=== PATIENT | male | born 1965 | race Caucasian/White ===

== ENCOUNTER 2017-11-17 19:04 | Emergency (ER) | payer MEDICARE, OTHER ==
[~2017-11-17 19:04] MED LIST: ACET325T11 PO; AMAN50SY PO; ASPI325T PO; FENO50TA PO; FERR325T PO; IBUP600T26 PO; KEPP1000 PO; LORA-392 PO; LORA0.5T PO; PHEN100 PO; QUET1TAB66 PO; SENO8.6T6 PO; SERT50 PO; TAB-TAB PO
[2017-11-17 19:19] VITALS: BP 150/80; PULSE 66; RESP 18; TEMP 98.2; O2SAT 97
[2017-11-17 19:30] VITALS: BP 150/80; PULSE 65; RESP 18; TEMP 98.4; O2SAT 97
[2017-11-17] MEDS ORDERED: SODIUM CHLOR 0.9% 1000 ML INJ 1,000 ML IV ONE (19:33)
--- NOTE | 2017-11-17 19:36 | PD ---
HPI Chief Complaint: seizures Time Seen by Provider: 19:20 Travel History International Travel<30 days: No Contact w/Intl Traveler<30days: No Traveled to known affect area: No History of Present Illness HPI 52-year-old male with history of seizure disorder, remote CVA with left-sided deficit, presents emergency department for evaluation of 3 seizures in the last 24 hours. Patient resides at a rehab facility. He has been off of his Dilantin recently but started again yesterday. He has had 2 doses of it. Patient did not strike his head. There is no loss of bowel or bladder. He did not bite his tongue. He reports no pain. He is overall a poor historian. Most of history is obtained from senior oracle dba. [facility] Past Medical History Depression: Yes Cardiovascular Problems: Yes (HX OF ABNORMAL EKG) High Cholesterol: Yes Cerebrovascular Accident: Yes Genitourinary: Yes (Constipation) Hypertension: Yes Neurologic: Yes (Ataxia) Psychiatric: Yes (DEPRESSION,ORGANIC AFFECTIVE DISORDER) Immunizations Current: Yes Seizures: Yes Past Surgical History Body Medical Devices: NEUROSYPHILIS, ENCEPHALOPATHY, NONPSYCHOTIC BRAIN D/O Social History Alcohol Use: No Tobacco Use: No Substance Use: No Allergies-Medications (Allergen,Severity, Reaction): Coded Allergies: ipratropium (Unverified Allergy, Severe, 11/17/17) penicillin G (Unverified Allergy, Severe, 11/17/17) Reported Meds & Prescriptions Reported Meds & Active Scripts Active Reported Tylenol 325 Mg Tab (Acetaminophen) 325 Mg Tab 650 Mg PO Q4H PRN Seroquel (Quetiapine Fumarate) 300 Mg Tab 300 Mg PO HS Iron (Ferrous Sulfate) 325 Mg Tab 325 Mg PO TID Dilantin 100 Mg Kapseals (Phenytoin Sodium) 100 Mg Caper 100 Mg PO TID Ibuprofen 600 Mg Tab 600 Mg PO Q8H PRN Lorazepam 0.5 Mg Tab 0.5 Mg PO Q8 PRN Keppra (Levetiracetam) 1,000 Mg Tab 1,000 Mg PO TID Tricor (Fenofibrate) 145 Mg Tab 160 Mg PO DAILY Multivitamin (Multivitamins) 1 Tab Tab 1 Tab PO DAILY Senokot (Sennosides) 8.6 Mg Tab 0 PO DAILYPRN UNKNOWN DOSE Symmetrel (Amantadine HCl) 50 Mg/5 Ml Syrp 100 Mg PO BID Ativan (Lorazepam) 0.5 Mg Tab 1 Mg PO Q8 PRN Zoloft (Sertraline HCl) 50 Mg Tab 50 Mg PO DAILY Aspirin 325 Mg Tab 325 Mg PO DAILY Review of Systems Except as stated in HPI: all other systems reviewed are Neg Physical Exam Narrative GENERAL: Thin, chronically ill-appearing male patient, in no acute distress. SKIN: Focused skin assessment warm/dry. HEAD: Atraumatic. Normocephalic. EYES: Pupils equal and round. No scleral icterus. No injection or drainage. ENT: No nasal bleeding or discharge. Mucous membranes pink and moist. NECK: Trachea midline. No JVD. CARDIOVASCULAR: Regular rate and rhythm. RESPIRATORY: No accessory muscle use. Clear to auscultation. Breath sounds equal bilaterally. GASTROINTESTINAL: Abdomen soft, non-tender, nondistended. Hepatic and splenic margins not palpable. MUSCULOSKELETAL: No obvious deformities. No clubbing. No cyanosis. No edema. NEUROLOGICAL: Awake and alert. No obvious cranial nerve deficits. Patient does move all extremities however left upper and lower extremities are weaker.. Normal speech. Data Data Last Documented VS Vital Signs Date Time Temp Pulse Resp B/P (MAP) Pulse Ox O2 Delivery O2 Flow Rate FiO2 11/17/17 22:54 70 16 138/82 (100) 11/17/17 19:44 97 Room Air 11/17/17 19:30 98.4 Orders Orders Complete Blood Count With Diff (11/17/17 19:33) Alcohol (Ethanol) (11/17/17 19:33) Phenytoin (Dilantin) (11/17/17 19:33) Drug Screen, Random Urine (11/17/17 19:33) Blood Glucose (11/17/17 19:33) Ecg Monitoring (11/17/17 19:33) Iv Access Insert/Monitor (11/17/17 19:33) Oximetry (11/17/17 19:33) Comprehensive Metabolic Panel (11/17/17 19:33) Sodium Chlor 0.9% 1000 Ml Inj (Ns 1000 M (11/17/17 19:33) Sodium Chloride 0.9% Flush (Ns Flush) (11/17/17 19:45) Magnesium (Mg) (11/17/17 19:33) Phenytoin Inj (Dilantin Inj) (11/17/17 21:30) Ed Discharge Order (11/17/17 23:32) Labs Laboratory Tests Test 11/17/17 20:00 White Blood Count 18.6 TH/MM3 Red Blood Count 4.61 MIL/MM3 Hemoglobin 14.8 GM/DL Hematocrit 43.6 % Mean Corpuscular Volume 94.6 FL Mean Corpuscular Hemoglobin 32.2 PG Mean Corpuscular Hemoglobin Concent 34.0 % Red Cell Distribution Width 14.2 % Platelet Count 408 TH/MM3 Mean Platelet Volume 8.0 FL Neutrophils (%) (Auto) 89.8 % Lymphocytes (%) (Auto) 4.1 % Monocytes (%) (Auto) 5.8 % Eosinophils (%) (Auto) 0.0 % Basophils (%) (Auto) 0.3 % Neutrophils # (Auto) 16.7 TH/MM3 Lymphocytes # (Auto) 0.8 TH/MM3 Monocytes # (Auto) 1.1 TH/MM3 Eosinophils # (Auto) 0.0 TH/MM3 Basophils # (Auto) 0.0 TH/MM3 CBC Comment DIFF FINAL Differential Comment Blood Urea Nitrogen 15 MG/DL Creatinine 0.97 MG/DL Random Glucose 123 MG/DL Total Protein 8.4 GM/DL Albumin 4.4 GM/DL Calcium Level 9.7 MG/DL Magnesium Level 2.2 MG/DL Alkaline Phosphatase 59 U/L Aspartate Amino Transf (AST/SGOT) 43 U/L Alanine Aminotransferase (ALT/SGPT) 33 U/L Total Bilirubin 0.9 MG/DL Sodium Level 139 MEQ/L Potassium Level 4.0 MEQ/L Chloride Level 103 MEQ/L Carbon Dioxide Level 26.1 MEQ/L Anion Gap 10 MEQ/L Estimat Glomerular Filtration Rate 81 ML/MIN Phenytoin (Dilantin) Level 8.9 MCG/ML Ethyl Alcohol Level LESS THAN 3 MG/DL [facility] Medical Decision Making Medical Screen Exam Complete: Yes Emergency Medical Condition: Yes Medical Record Reviewed: Yes Differential Diagnosis Breakthrough seizure versus seizure disorder versus medication noncompliance versus subtherapeutic medication level versus electrolyte abnormality Narrative Course 52-year-old male presents emergency department for evaluation following 3 seizures in the last 24 hours. Patient does have history of seizure disorder. He recently restarted his Dilantin. Lab work shows a subtherapeutic Dilantin level. Patient is given 1 g IV Dilantin bolus. Patient has leukocytosis of 18.6, likely secondary to multiple seizures in the last 24 hours. He is instructed to continue his Dilantin as prescribed by mouth. I discussed the patient my attending physician. Patient will be discharged at this time. Transportation has been contacted by case management. Patient will be staying until morning for a ride. Laboratory Tests Test 11/17/17 20:00 White Blood Count 18.6 TH/MM3 Red Blood Count 4.61 MIL/MM3 Hemoglobin 14.8 GM/DL Hematocrit 43.6 % Mean Corpuscular Volume 94.6 FL Mean Corpuscular Hemoglobin 32.2 PG Mean Corpuscular Hemoglobin Concent 34.0 % Red Cell Distribution Width 14.2 % Platelet Count 408 TH/MM3 Mean Platelet Volume 8.0 FL Neutrophils (%) (Auto) 89.8 % Lymphocytes (%) (Auto) 4.1 % Monocytes (%) (Auto) 5.8 % Eosinophils (%) (Auto) 0.0 % Basophils (%) (Auto) 0.3 % Neutrophils # (Auto) 16.7 TH/MM3 Lymphocytes # (Auto) 0.8 TH/MM3 Monocytes # (Auto) 1.1 TH/MM3 Eosinophils # (Auto) 0.0 TH/MM3 Basophils # (Auto) 0.0 TH/MM3 CBC Comment DIFF FINAL Differential Comment Blood Urea Nitrogen 15 MG/DL Creatinine 0.97 MG/DL Random Glucose 123 MG/DL Total Protein 8.4 GM/DL Albumin 4.4 GM/DL Calcium Level 9.7 MG/DL Magnesium Level 2.2 MG/DL Alkaline Phosphatase 59 U/L Aspartate Amino Transf (AST/SGOT) 43 U/L Alanine Aminotransferase (ALT/SGPT) 33 U/L Total Bilirubin 0.9 MG/DL Sodium Level 139 MEQ/L Potassium Level 4.0 MEQ/L Chloride Level 103 MEQ/L Carbon Dioxide Level 26.1 MEQ/L Anion Gap 10 MEQ/L Estimat Glomerular Filtration Rate 81 ML/MIN Phenytoin (Dilantin) Level 8.9 MCG/ML Ethyl Alcohol Level LESS THAN 3 MG/DL Diagnosis Primary Impression: Breakthrough seizure Additional Impression: Subtherapeutic serum dilantin level Referrals: Primary Care Physician Patient Instructions: General Instructions, Recurrent Seizures in Adults (ED) Additional Instructions: Continue medication as already prescribed Follow-up with your neurologist Return immediately with acute worsening symptoms Med/Other Pt SpecificInfo: No Change to Meds Disposition: 03 DISCHARGE TO SNF Condition: Stable Antonia Smith Nov 17, 2017 19:36
[2017-11-17 19:44] VITALS: RESP 18; O2SAT 97
[2017-11-17] MEDS ORDERED: SODIUM CHLORIDE 0.9% FLUSH 10 ML FLUSH IVF PRN (19:45)
[2017-11-17 20:40] LABS: AUTOMATED NEUTROPHIL # 16.7 TH/MM3 (1.8-7.7); BASOPHIL % 0.3 % (0.0-2.0); HEMATOCRIT 43.6 % (39.0-51.0); HEMOGLOBIN 14.8 GM/DL (13.0-17.0); LYMPH % 4.1 % (9.0-44.0); LYMPHOCYTE # 0.8 TH/MM3 (1.0-4.8); MEAN CELL VOLUME 94.6 FL (80.0-100.0); MEAN CORPUSCULAR HEMOGLOBIN 32.2 PG (27.0-34.0); MONO % 5.8 % (0.0-8.0); MONOCYTE # 1.1 TH/MM3 (0-0.9); NEUT % 89.8 % (16.0-70.0); PLATELET COUNT 408 TH/MM3 (150-450); RED BLOOD COUNT 4.61 MIL/MM3 (4.50-5.90); RED CELL DISTRIBUTION WIDTH 14.2 % (11.6-17.2); WHITE BLOOD COUNT 18.6 TH/MM3 (4.0-11.0)
[2017-11-17 21:13] LABS: ALBUMIN 4.4 GM/DL (3.4-5.0); ALKALINE PHOSPHATASE 59 U/L (45-117); ALT (GPT) 33 U/L (12-78); AST (GOT) 43 U/L (15-37); BICARBONATE 26.1 MEQ/L (21.0-32.0); BLOOD UREA NITROGEN 15 MG/DL (7-18); CALCIUM 9.7 MG/DL (8.5-10.1); CHLORIDE 103 MEQ/L (98-107); CREATININE 0.97 MG/DL (0.60-1.30); GLOMERULAR FILTRATION RATE 81 ML/MIN (>89); GLUCOSE,RANDOM 123 MG/DL (74-106); MAGNESIUM 2.2 MG/DL (1.5-2.5); PHENYTOIN (DILANTIN) 8.9 MCG/ML (10.0-20.0); SODIUM (NA) 139 MEQ/L (136-145); TOTAL BILIRUBIN ADULT 0.9 MG/DL (0.2-1.0); TOTAL PROTEIN 8.4 GM/DL (6.4-8.2)
[2017-11-17] MEDS ORDERED: PHENYTOIN INJ 1,000 MG in SODIUM CHLORIDE 0.9% INJ 100 ML IV ONE (21:30)
[2017-11-17 22:54] VITALS: BP 138/82; PULSE 70; RESP 16
[2017-11-18] MEDS ORDERED: ASPI1TAB57 PO (06:27)
[2017-11-18] MEDS ORDERED: DILA100C PO (06:27)
[2017-11-18] MEDS ORDERED: LEVE10003 PO (06:27)
[2017-11-18] MEDS ORDERED: QUET-87 (06:27)
[2017-11-18] MEDS ORDERED: FENO160T PO (06:27)
[2017-11-18] MEDS ORDERED: LORA-392 PO (06:27)
== END 2017-11-18 08:19 ==
LOC: NEPD 19:04
DX: G40.909 Epilepsy, unspecified, not intractable, without status epilepticus (principal); R89.2 Abnormal level of other drugs, medicaments and biological substances in specimens from other organs, systems and tissues; I69.30 Unspecified sequelae of cerebral infarction; E78.00 Pure hypercholesterolemia, unspecified; F32.9 Major depressive disorder, single episode, unspecified; I10 Essential (primary) hypertension
CPT/HCPCS: 80053; 80185; 80307; 83735; 85025; 96361; 96374; 99284; J1165; J7030

== ENCOUNTER 2018-06-14 09:14 | Observation (INO) ==
[2018-06-14 09:46] LABS: Baso % (Auto) 0.2 % (0.0-2.0); Hematocrit 41.7 % (39.0-51.0); Hemoglobin 13.9 gm/dL (13.0-17.0); Lymph # (Auto) 0.6 th/mm3 (1.0-4.8); Lymph % (Auto) 3.6 % (9.0-44.0); Mean Corpuscular HGB Conc 33.3 % (32.0-36.0); Mean Corpuscular Hemoglobin 31.7 pg (27.0-34.0); Mean Corpuscular Volume 95.3 fL (80.0-100.0); Mono # (Auto) 0.9 th/mm3 (0.0-0.9); Mono % (Auto) 5.6 % (0.0-8.0); Neut # (Auto) 14.9 th/mm3 (1.8-7.7); Neut % (Auto) 90.6 % (16.0-70.0); Platelet Count 569 th/mm3 (150-450); Red Blood Count 4.38 mil/mm3 (4.50-5.90); Red Cell Distribution Width 14.1 % (11.6-17.2); White Blood Count 16.5 th/mm3 (4.0-11.0)
[2018-06-14 10:01] LABS: Anion Gap 18 meq/L (5-15); Aspartate Aminotransferase 26 U/L (15-37); Blood Urea Nitrogen 17 mg/dL (7-18); Calcium 9.7 mg/dL (8.5-10.1); Carbon Dioxide 18.5 meq/L (21.0-32.0); Chloride 103 meq/L (98-107); Glomerular Filtration Rate 49 mL/min (>89); Glucose,Random 163 mg/dL (74-106); Potassium 3.3 meq/L (3.5-5.1); Sodium 139 meq/L (136-145)
[2018-06-14 10:02] LABS: Alanine Aminotransferase 24 U/L (12-78)
[2018-06-14 10:04] LABS: Alkaline Phosphatase 99 U/L (45-117); Total Protein 8.9 g/dL (6.4-8.2)
[2018-06-14 11:10] LABS: Bacteria,Urine Many /hpf; Bilirubin,Urine Negative (Negative); Clarity,Urine Turbid (Clear); Glucose,Urine (UA) Negative (Negative); Hyaline Casts,Urine 15 /lpf (0-3); Leukocyte Esterase,Urine Large (Negative); Mucus,Urine Few /lpf (Occasional); Nitrite,Urine Negative (Negative); Specific Gravity,Urine 1.015 (1.002-1.035)
[2018-06-14 11:13] LABS: Color,Urine Yellow (Yellw/Straw)
--- NOTE | 2018-06-14 11:18 | ED ---
HPI General Chief Complaint: Altered Mental Status Stated Complaint: NVD / poss AMS Time Seen by Provider: 06/14/18 11:06 Source: patient, EMS and RN notes reviewed Mode of arrival: EMS Limitations: no limitations History of Present Illness HPI narrative: 53-year-old male with PMH of HTN,CVA presents to the ED via EMS from [facility] for evaluation of altered mental status. On presentation the patient is alert to self and situation only. He states that he had a seizure this morning. He asks repeatedly to put on his pants. He has a stutter and tremor, unknown if this is baseline. He is pleasant and follows commands but is unable to offer any other meaningful history. Related Data Home Medications Medication Instructions Recorded Confirmed amantadine HCl 100 mg PO BID 06/14/18 06/14/18 aspirin 81 mg PO DAILY 06/14/18 06/14/18 fenofibrate 160 mg PO DAILY 06/14/18 06/14/18 ferrous sulfate 325 mg PO TID 06/14/18 06/14/18 levetiracetam [Keppra] 1,000 mg PO TID 06/14/18 06/14/18 lorazepam 0.5 mg PO Q8H PRN 06/14/18 06/14/18 lorazepam [Ativan] 1 mg PO BID PRN 06/14/18 06/14/18 phenytoin sodium extended 100 mg PO TID 06/14/18 06/14/18 [Dilantin Extended] quetiapine 100 mg PO HS 06/14/18 06/14/18 Allergies Allergy/AdvReac Type Severity Reaction Status Date / Time ipratropium Allergy Severe unknown Verified 06/14/18 11:39 penicillin G Allergy Severe unknown Verified 06/14/18 11:39 Review of Systems ROS: all other systems reviewed are negative [facility] Medical History Medical History Anemia (Acute) Ataxia (Acute) CVA (cerebral vascular accident) (Acute) Constipation (Acute) Depression (Acute) HTN (hypertension) (Acute) Hyperlipemia (Acute) Seizure (Acute) Surgical history unknown (Acute) Social History Social History Substance History: Unable to Obtain Smoking Status: Unknown if ever smoked How Often Do You Have a Drink Containing Alcohol: Unable to Obtain Recent Travel in [facility] within the Last 8 Weeks: No Recent Out of Country Travel within the Last 8 Weeks: No Immunization History Tetanus Immunization: Unable to Assess Exam Narrative Exam Narrative: GENERAL: Well-developed, well-nourished white male, smells strongly of urine, no acute distress. SKIN: Focused skin assessment warm/dry. HEAD: Atraumatic. Normocephalic. EYES: Pupils equal and round. No scleral icterus. No injection or drainage. ENT: No nasal bleeding or discharge. Mucous membranes pink and moist. NECK: Trachea midline. No JVD. CARDIOVASCULAR: Regular rate and rhythm. No murmur appreciated. RESPIRATORY: No accessory muscle use. Clear to auscultation. Breath sounds equal bilaterally. GASTROINTESTINAL: Abdomen soft, non-tender, nondistended. Hepatic and splenic margins not palpable. MUSCULOSKELETAL: No obvious deformities. No clubbing. No cyanosis. No edema. NEUROLOGICAL: Awake and alert. No obvious cranial nerve deficits. Mild tremor and pronounced stutter. Equal manager trade strength in bilateral hands. Moves the lower extremities spontaneously. PSYCHIATRIC: Confused, cooperative Course Initial Documented Vital Signs Temperature 97.8 F 06/14/18 09:20 Pulse Rate 79 06/14/18 09:20 Respiratory Rate 19 06/14/18 09:20 Blood Pressure 142/84 H 06/14/18 09:20 Pulse Oximetry 95 06/14/18 09:20 Last Documented Vital Signs Temperature 97.8 F 06/14/18 09:20 Pulse Rate 67 06/14/18 13:46 Respiratory Rate 24 06/14/18 13:46 Blood Pressure 152/90 H 06/14/18 13:46 Pulse Oximetry 97 06/14/18 13:46 Medical Decision Making [facility] Narrative Medical decision making narrative: 53-year-old male with PMH of HTN, CVA presents the ED from his rehab for evaluation of altered mental status this morning. On exam the patient's alert and oriented to situation. He thinks that he had a seizure this morning because he has been incontinent of urine. He follows commands but he is unable to hop for any real history. There is a pronounced daughter. I reviewed the paperwork accompanying the patient and do not see any evidence of this. CT of the brain without acute findings. Lab work reveals leukocytosis of 16K+ and evidence of UTI. Creatinine up from baseline. Dilantin is at subtherapeutic levels. Patient was administered a liter of normal saline, 750 of Levaquin and 600 mg of Dilantin. I discussed the patient with the hospitalist who agrees to accept him for observation. Patient's agreeable to this plan. Please see medicine notes for disposition. Medical Screen Exam Complete: Yes Emergency Medical Condition: Yes Differential Diagnosis Differential Diagnosis: UTI versus seizure versus ICH versus other Lab Data Result diagrams: 06/14/18 09:34 06/14/18 09:34 Lab Results 06/14/18 06/14/18 06/14/18 Range/Units 09:34 09:34 09:34 WBC 16.5 H (4.0-11.0) th/mm3 RBC 4.38 L (4.50-5.90) mil/mm3 Hgb 13.9 (13.0-17.0) gm/dL Hct 41.7 (39.0-51.0) % MCV 95.3 (80.0-100.0) fL MCH 31.7 (27.0-34.0) pg MCHC 33.3 (32.0-36.0) % RDW 14.1 (11.6-17.2) % Plt Count 569 H (150-450) th/mm3 MPV 7.0 (7.0-11.0) fL Neut % (Auto) 90.6 H (16.0-70.0) % Lymph % (Auto) 3.6 L (9.0-44.0) % [place] % (Auto) 5.6 (0.0-8.0) % Eos % (Auto) 0.0 (0.0-4.0) % Baso % (Auto) 0.2 (0.0-2.0) % Neut # (Auto) 14.9 H (1.8-7.7) th/mm3 Lymph # (Auto) 0.6 L (1.0-4.8) th/mm3 [place] # (Auto) 0.9 (0.0-0.9) th/mm3 Eos # (Auto) 0.0 (0.0-0.4) th/mm3 Baso # (Auto) 0.0 (0.0-0.2) th/mm3 WBC Differential . Differential Comment Auto diff final Sodium 139 (136-145) meq/L Potassium 3.3 L (3.5-5.1) meq/L Chloride 103 (98-107) meq/L Carbon Dioxide 18.5 L (21.0-32.0) meq/L Anion Gap 18 H (5-15) meq/L BUN 17 (7-18) mg/dL Creatinine 1.49 H (0.60-1.30) mg/dL Estimated GFR 49 L (>89) mL/min Random Glucose 163 H (74-106) mg/dL Calcium 9.7 (8.5-10.1) mg/dL Total Bilirubin 0.5 (0.2-1.0) mg/dL AST 26 (15-37) U/L ALT 24 (12-78) U/L Alkaline Phosphatase 99 (45-117) U/L Total Creatine Kinase 126 (39-308) U/L CK-MB (CK-2) 3.3 (0.5-3.6) ng/mL Total Protein 8.9 H (6.4-8.2) g/dL Albumin 4.0 (3.4-5.0) g/dL Lipase (73-393) U/L Urine Color (Yellw/Straw) Urine Clarity (Clear) Urine pH (5.0-8.5) Ur Specific [place] (1.002-1.035) Urine Protein (Neg-Trace) mg/dL Urine Glucose (UA) (Negative) mg/dL Urine Ketones (Negative) mg/dL Urine Occult Blood (Negative) Urine Nitrate (Negative) Urine Bilirubin (Negative) Urine Urobilinogen (Less than 2) mg/dL Ur Leukocyte Esterase (Negative) Urine RBC (0-3) /hpf Urine WBC (0-5) /hpf Urine WBC Clumps (None) Urine Bacteria (None) /hpf Hyaline Casts (0-3) /lpf Urine Mucus (Occasional) /lpf Micro UA Comment Ur Microscopic Review Urine Culture Comments Phenytoin (10.0-20.0) mcg/mL 06/14/18 06/14/18 06/14/18 Range/Units 09:34 09:34 10:28 WBC (4.0-11.0) th/mm3 RBC (4.50-5.90) mil/mm3 Hgb (13.0-17.0) gm/dL Hct (39.0-51.0) % MCV (80.0-100.0) fL MCH (27.0-34.0) pg MCHC (32.0-36.0) % RDW (11.6-17.2) % Plt Count (150-450) th/mm3 MPV (7.0-11.0) fL Neut % (Auto) (16.0-70.0) % Lymph % (Auto) (9.0-44.0) % [place] % (Auto) (0.0-8.0) % Eos % (Auto) (0.0-4.0) % Baso % (Auto) (0.0-2.0) % Neut # (Auto) (1.8-7.7) th/mm3 Lymph # (Auto) (1.0-4.8) th/mm3 [place] # (Auto) (0.0-0.9) th/mm3 Eos # (Auto) (0.0-0.4) th/mm3 Baso # (Auto) (0.0-0.2) th/mm3 WBC Differential Differential Comment Sodium (136-145) meq/L Potassium (3.5-5.1) meq/L Chloride (98-107) meq/L Carbon Dioxide (21.0-32.0) meq/L Anion Gap (5-15) meq/L BUN (7-18) mg/dL Creatinine (0.60-1.30) mg/dL Estimated GFR (>89) mL/min Random Glucose (74-106) mg/dL Calcium (8.5-10.1) mg/dL Total Bilirubin (0.2-1.0) mg/dL AST (15-37) U/L ALT (12-78) U/L Alkaline Phosphatase (45-117) U/L Total Creatine Kinase (39-308) U/L CK-MB (CK-2) (0.5-3.6) ng/mL Total Protein (6.4-8.2) g/dL Albumin (3.4-5.0) g/dL Lipase 235 (73-393) U/L Urine Color Yellow (Yellw/Straw) Urine Clarity Turbid H (Clear) Urine pH 6.0 (5.0-8.5) Ur Specific [place] 1.015 (1.002-1.035) Urine Protein 100 H (Neg-Trace) mg/dL Urine Glucose (UA) Negative (Negative) mg/dL Urine Ketones Negative (Negative) mg/dL Urine Occult Blood Small H (Negative) Urine Nitrate Negative (Negative) Urine Bilirubin Negative (Negative) Urine Urobilinogen Less than 2 (Less than 2) mg/dL Ur Leukocyte Esterase Large H (Negative) Urine RBC 8 H (0-3) /hpf Urine WBC (0-5) /hpf Urine WBC Clumps Many H (None) Urine Bacteria Many H (None) /hpf Hyaline Casts 15 (0-3) /lpf Urine Mucus Few H (Occasional) /lpf Micro UA Comment Cath-culture ind Ur Microscopic Review Not Reportable Urine Culture Comments Cath-cult indicated Phenytoin 4.4 L (10.0-20.0) mcg/mL Imaging Data Radiologist's impression: Head CT 06/14/18 11:15 CONCLUSION: 1. No acute intracranial abnormality. . Discharge Plan Discharge Disposition Patient Disposition: 30 Still Patient Physicians Team ED Provider: Lobo Mckeon ED Midlevel Provider: Valery Cortes Primary Care Provider: UNKNOWN, Attending Provider: Ernie Bates Other Providers: Ervin Bueno Discharge Interventions Interventions: ED Discharge Assessment Last Done: 06/14/18 14:00 Vital Signs Last Done: 06/14/18 11:39 Status ED Status: Left Department Discharge Information Discharge Date/Time: 06/14/18 14:01
[2018-06-14] MEDS ORDERED: Sod Chloride 0.9% Inj 1,000 ML IV.SIG ONE (11:28)
--- NOTE | 2018-06-14 11:44 | CT ---
EXAM DATE: 06/14/2018 11:35 AM EST AGE/SEX: 53 years / Male INDICATIONS: Altered mental status. Possible seizure last night. CLINICAL DATA: This is the patient's initial encounter. Patient reports that signs and symptoms have been present for 1 day and indicates a pain score of 0/10. MEDICAL/SURGICAL HISTORY: Seizures. None. RADIATION DOSE: 35.01 CTDI (mGy) COMPARISON: [facility] [place] BRAIN [place]/O CONTRAST, 02/10/2012. . TECHNIQUE: CT of the head without contrast. Using automated exposure control and adjustment of the mA and/or kV according to patient size, radiation dose was kept as low as reasonably achievable to ob tain optimal diagnostic quality images. DICOM format image data is available electronically for revi ew and comparison. FINDINGS: Cerebrum: The ventricles are normal for age. No evidence of midline shift, mass lesion, hemorrhage or acute infarction. No extraaxial fluid collections are seen. Posterior Fossa: The cerebellum and brainstem are intact. The 4th ventricle is midline. The cerebe llopontine angle is unremarkable. Extracranial: The visualized portion of the orbits is intact. Skull: The calvaria is intact. No evidence of skull fracture. CONCLUSION: 1. No acute intracranial abnormality. . Electronically signed by: Max Ruiz MD 06/14/2018 11:42 AM EST
[2018-06-14 11:45] LABS: Creatine Kinase 126 U/L (39-308)
[2018-06-14 12:00] LABS: Creatine Kinase MB 3.3 ng/mL (0.5-3.6)
[2018-06-14] MEDS ORDERED: LORazepam 0.5 MG Tablet PO PRN (13:17)
[2018-06-14] MEDS ORDERED: Bisacodyl 10 MG Supp RECTAL PRN (13:27)
--- NOTE | 2018-06-14 13:32 | P.HPIM ---
History of Present Illness Service: [facility] Primary Care Physician: UNKNOWN Chief Complaint: AMS History of Present Illness: 53-year-old male who resides [facility] sent into the hospital for evaluation of a status. Per halfway documentation, the patient had an episode of vomiting today and was confused. He reported to the ER staff he had a seizure. There is reports of urinary incontinence. On my evaluation, the patient is very confused, repeatedly says yes to every questions and he does not able to contribute to the history. EMR reviewed. There is reported history of neurosyphilis versus CVA. He has been on Dilantin and Keppra for seizure disorder. It is unclear if there has been any recent change in his medications. Dilantin level was found to be low. Urinalysis in the emergency room concerning for UTI. 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 - Medical History Medical History: Medical History (Last Reviewed 06/14/18 @ 14:06 by Ernie Bates MD) Anemia Ataxia CVA (cerebral vascular accident) Constipation Depression HTN (hypertension) Hyperlipemia Seizure Surgical history unknown - Tobacco History Smoking Status: Unknown if ever smoked - Alcohol History How Often Do You Have a Drink Containing Alcohol: Unable to Obtain - Substance Use History Substance History: Unable to Obtain - Travel History Recent Travel in the [place] Within the Last 8 Weeks: No Recent Travel Out of the Country Within the Last 8 Weeks: No - Immunization History Tetanus Immunization: Unable to Assess Medications and Allergies Active Medications: Active Medications Al Hydroxide/Mg Hydroxide (Milk Of Magnesia Liq) 30 ml PO Q12H PRN PRN Reason: Mild Constipation Amantadine HCl (Symmetrel) 100 mg PO BID RASHEED Aspirin (Aspirin Chew) 81 mg PO DAILY RASHEED Bisacodyl (Dulcolax Supp) 10 mg RECTAL DAILY PRN PRN Reason: SEVERE CONSITIPATION Ferrous Sulfate (Ferosul) 325 mg PO TID RASHEED Phenytoin Sodium / Sodium (Chloride) 50 mls @ 600 mls/hr IV.SIG ONCE ONE Stop: 06/14/18 12:42 Lactulose (Lactulose Liq) 30 ml PO DAILY PRN PRN Reason: SEVERE CONSITIPATION Levofloxacin (Levaquin) 750 mg PO DAILY RASHEED Lorazepam (Ativan) 0.5 mg PO Q8H PRN PRN Reason: Anxiety Non-Formulary Medication (Fenofibrate [Fenofibrate]) 160 mg PO DAILY RASHEED Non-Formulary Medication (Levetiracetam [Keppra]) 1,000 mg PO TID RASHEED Phenytoin Sodium (Dilantin) 100 mg PO TID RASHEED Quetiapine Fumarate (Seroquel) 100 mg PO HS [facility] Sennosides (Senokot) 17.2 mg PO Q12H PRN PRN Reason: Moderate Constipation Allergies Allergy/AdvReac Type Severity Reaction Status Date / Time ipratropium Allergy Severe unknown Verified 06/14/18 11:39 penicillin G Allergy Severe unknown Verified 06/14/18 11:39 Home Medications Medication Instructions Recorded Confirmed Type amantadine HCl 100 mg PO BID 06/14/18 06/14/18 History aspirin 81 mg PO DAILY 06/14/18 06/14/18 History fenofibrate 160 mg PO DAILY 06/14/18 06/14/18 History ferrous sulfate 325 mg PO TID 06/14/18 06/14/18 History levetiracetam [Keppra] 1,000 mg PO TID 06/14/18 06/14/18 History lorazepam 0.5 mg PO Q8H PRN 06/14/18 06/14/18 History lorazepam [Ativan] 1 mg PO BID PRN 06/14/18 06/14/18 History phenytoin sodium extended 100 mg PO TID 06/14/18 06/14/18 History [Dilantin Extended] quetiapine 100 mg PO HS 06/14/18 06/14/18 History Exam Vital signs: Vital Signs 06/14/18 09:20 06/14/18 11:39 Temperature 97.8 F Pulse Rate 79 65 Respiratory Rate 19 18 Blood Pressure 142/84 H 155/91 H Pulse Oximetry 95 97 Intake & Output 06/13/18 06/14/18 06/14/18 18:59 06:59 18:59 Intake Total 1150 / 1150 Balance 1150 / 1150 Weight 58.513 kg Intake: IV 1150 / 1150 Levaquin 750 mg Premix Inj 150 150 / 150 ML @ 100 mls/hr IV.SIG ONCE ONE Rx#:[id number] NS Inj 1,000 ML @ Wide Open IV. 1000 / 1000 SIG BOLUS ONE Rx#:[id number] Narrative: GENERAL: Patient appears older than stated age. Confused. CARDIOVASCULAR: Normal rate and regular rhythm without murmurs, gallops, or rubs. RESPIRATORY: Breath sounds equal and clear to auscultation bilaterally. GASTROINTESTINAL: Abdomen soft, diffusely tender to palpation. Hypoactive bowel sounds MUSCULOSKELETAL: Extremities without cyanosis, or edema. NEURO: Awake. Confused. Moves all extremities. PSYCH: Confused. Results - Labs CBC & Chem 7: 06/14/18 09:34 06/14/18 09:34 Labs: Short CBC 06/14/18 Range/Units 09:34 WBC 16.5 H (4.0-11.0) th/mm3 Hgb 13.9 (13.0-17.0) gm/dL Hct 41.7 (39.0-51.0) % Plt Count 569 H (150-450) th/mm3 BMP 06/14/18 09:34 Sodium 139 Potassium 3.3 L Chloride 103 Carbon Dioxide 18.5 L BUN 17 Creatinine 1.49 H Calcium 9.7 Cardiac Enzymes 06/14/18 Range/Units 09:34 Total Creatine Kinase 126 (39-308) U/L CK-MB (CK-2) 3.3 (0.5-3.6) ng/mL Liver Function 06/14/18 Range/Units 09:34 Total Bilirubin 0.5 (0.2-1.0) mg/dL AST 26 (15-37) U/L ALT 24 (12-78) U/L Alkaline Phosphatase 99 (45-117) U/L Albumin 4.0 (3.4-5.0) g/dL Urine 06/14/18 Range/Units 10:28 Urine Color Yellow (Yellw/Straw) Urine Clarity Turbid H (Clear) Urine pH 6.0 (5.0-8.5) Ur Specific [place] 1.015 (1.002-1.035) Urine Protein 100 H (Neg-Trace) mg/dL Urine Glucose (UA) Negative (Negative) mg/dL - Imaging Impressions Head CT 06/14/18 11:15 CONCLUSION: 1. No acute intracranial abnormality. . Caprini VTE Risk Assessment Caprini VTE Risk Assessment: Moderate/High Risk (score >= 2) Caprini Risk Assessment Model: Point Value = 1 Point Value = 2 Point Value = 3 Point Value = 5 Age 41-60 Minor surgery BMI > 25 kg/m2 Swollen legs Varicose veins or History of unexplained or recurrent spontaneous Oral contraceptives or hormone replacement Sepsis (< 1 month) Serious lung disease, including pneumonia (< 1 month) Abnormal pulmonary function Acute myocardial infarction Congestive heart failure (< 1 month) History of inflammatory bowel disease Medical patient at bed rest Age 61-74 Arthroscopic surgery Major open surgery (> 45 min) Laparoscopic surgery (> 45 min) Malignancy Confined to bed (> 72 hours) Immobilizing plaster cast Central venous access Age >= 75 History of VTE Family history of VTE Factor V Leiden Prothrombin [id number] Lupus anticoagulant Anticardiolipin antibodies Elevated serum homocysteine Heparin-induced thrombocytopenia Other congenital or acquired thrombophilia Stroke (< 1 month) Elective arthroplasty Hip, pelvis, or leg fracture Acute spinal cord injury (< 1 month) Prophylaxis Regimen: Total Risk Factor Score Risk Level Prophylaxis Regimen 0-1 Low Early ambulation 2 Moderate Order ONE of the following: *Sequential Compression Device (SCD) *Heparin 5000 units SQ BID 3-4 Higher Order ONE of the following medications: *Heparin 5000 units SQ TID *Enoxaparin/Lovenox 40 mg SQ daily (WT < 150 kg, CrCl > 30 mL/min) *Enoxaparin/Lovenox 30 mg SQ daily (WT < 150 kg, CrCl > 10-29 mL/min) *Enoxaparin/Lovenox 30 mg SQ BID (WT < 150 kg, CrCl > 30 mL/min) AND/OR *Sequential Compression Device (SCD) 5 or more Highest Order ONE of the following medications: *Heparin 5000 units SQ TID (Preferred with Epidurals) *Enoxaparin/Lovenox 40 mg SQ daily (WT < 150 kg, CrCl > 30 mL/min) *Enoxaparin/Lovenox 30 mg SQ daily (WT < 150 kg, CrCl > 10-29 mL/min) *Enoxaparin/Lovenox 30 mg SQ BID (WT < 150 kg, CrCl > 30 mL/min) AND *Sequential Compression Device (SCD) Assessment and Plan - Plan 53-year-old male who resides at a SNF, history of CVA, polysubstance abuse vs neurosyphillis: Acute encephalopathy/probable breakthrough seizure versus delirium due to UTI: Head CT unremarkable. -Dilantin level subtherapeutic -Resume Dilantin and Keppra. - Consult neurology for assistance. - Seizure precautions and EEG. UTI: Urinalysis suggestive of UTI. - Continue Levaquin. Follow urine cultures. - IV fluid. Vomiting: Could be secondary to viral gastroenteritis. - Obtain abdominal ultrasound. - Check lipase - IVF - Antiemetics as needed. If persisting and he is more alert to drink contrast, would consider abdominal CT. FRANCHESKA: -Likely secondary to prerenal azotemia and UTI. - IV fluid. Follow-up labs in a.m. Admit for observation. Continue the rest of the patient's chronic home medications.
[2018-06-14] MEDS ORDERED: PHENYTOIN IV.SIG ONE (14:30)
[2018-06-14] MEDS ORDERED: SODIUM CHLOR 0.9% IV.SIG ONE (14:30)
[2018-06-14] MEDS: KCL 10 mEq/D5W/NaCl 0.45% Inj 1,000 ML IV.CONT SCH (15:58)
[2018-06-14] MEDS: Ferrous Sulfate 325 MG Tablet PO SCH (17:52)
[2018-06-14] MEDS ORDERED: Phenytoin Sodium 100 MG Capsule PO SCH (18:00)
[2018-06-14] MEDS ORDERED: levETIRAcetam 1000mg/100mL Inj 100 ML IV.SIG SCH (18:00)
[2018-06-14] MEDS ORDERED: levETIRAcetam 500 MG Tablet PO SCH (18:00)
--- NOTE | 2018-06-14 18:49 | MB ---
cc: Ervin Bueno MD, PhD DATE: 06/14/2018 REASON FOR CONSULTATION: Breakthrough seizure. HISTORY OF PRESENT ILLNESS: This is a 53-year-old man who resides at [facility], who has a history of stroke, secondary seizure, hyperlipidemia, depression, constipation. He developed alteration in mental status. He was brought to the emergency room. He states he had a seizure this morning. He has been very confused following this. CURRENT MEDICATIONS: 1. Symmetrel 100 mg b.i.d. 2. Aspirin 81 mg daily. 3. Dulcolax. 4. Tricor 145 mg daily. 5. Iron sulfate 325 mg t.i.d. 6. Lactulose. 7. He is on Keppra 1000 mg IV b.i.d. 8. Levaquin 750 mg daily. 9. Ativan p.r.n. 10. Zofran p.r.n. 11. Dilantin 100 mg IV every 8 hours. 12. Seroquel 100 mg at bedtime 10. Senokot 17.2 mg daily. His anticonvulsants previously were Keppra 1000 mg t.i.d., Dilantin 100 mg t.i.d. NEUROLOGIC EXAMINATION: VITAL SIGNS: His blood pressure is 150/90, pulse 67, respirations 24, temperature is 97.7 degrees. HIGHER CORTICAL FUNCTION: The patient is alert. He is disoriented to date and place. Recalls 1/3 objects at 3 minutes. Speech is somewhat dysarthric. He does follow commands. Cranial nerves are intact. Motor exam: He has no focal deficits. Moves both upper extremities equally and both lower extremities equally. IMAGING: CT of the brain: No acute change present. LABORATORY DATA: White count 16,500, hemoglobin 13.9, hematocrit 41.7%, platelets 569,000. Sodium is 139, potassium 3.3, chloride 103, CO2 18.5, BUN 17, creatinine 1.49, GFR 49, glucose 130, calcium 9.7. AST 26, ALT is 24, lipase 235. Urinalysis: The pH is 6, specific gravity 1.015, protein 100, 8 RBC is identified, large leukocyte esterase, innumerable WBCs. Dilantin level 4.4. IMPRESSION: Recurrent seizure with subtherapeutic Dilantin. DISCUSSION: We will give the patient a bolus dose of Cerebyx 500 mg IV x1, increase Dilantin to 400 mg daily, increased Keppra to 1000 mg t.i.d. Continue IV for now. ADDENDUM: On review of the record, the patient already did receive 600 mg extra Dilantin IV. Therefore, we will not give the additional Cerebyx. Follow his level. Will obtain an EEG as well. Ervin Bueno MD, PhD SHANNON/enrico , 05:44 PM , 05:53 PM
--- NOTE | 2018-06-14 20:43 | US ---
EXAM DATE: 06/14/2018 8:37 PM EST AGE/SEX: 53 years / Male INDICATIONS: Abdominal pain. CLINICAL DATA: This is the patient's initial encounter. Patient reports that signs and symptoms have been present for 1 day and indicates a pain score of Nonresponsive. MEDICAL/SURGICAL HISTORY: Anemia. Hypertension. Ataxia. Constipation. CVA. Depression. Seizure . Hyperlipidemia. None. COMPARISON: No prior exams available for comparison. MEASUREMENTS: Liver:__ 14.4 cm. Common Bile Duct:___ 8mm. Right Kidney:___12.6 x 5.7 x 5.5 cm. Left Kidney:___8.3 x 4.1 x 4.1 cm. Spleen:___9.9 cm. FINDINGS: Liver: Normal echotexture without focal lesion or ductal dilatation. Portal Vein: Hepatopedal flow seen in portal vein. Common Duct: Common bile duct is prominent measuring up to 8 mm and contains a focal 6 mm echogenic focus likely reflecting a stone. Gallbladder: Numerous mobile gallstones in the gallbladder with the largest measuring up to 18 mm. Mild gallbladder wall thickening. Very trace pericholecystic fluid. Pancreas: Slight pancreatic ductal dilatation measuring up to 3 mm. Right Kidney: 8 x 10 x 4 mm calyceal calculus in the superior pole the right kidney right kidney is otherwise without hydronephrosis. Diffusely increased cortical echogenicity. Left Kidney: Moderate to severe hydronephrosis. Diffusely increased cortical echogenicity. Ascites: None Pleural Effusion: None Spleen: No focal lesion. Aorta: Non aneurysmal. IVC: Within normal limits Other: None. CONCLUSION: 1. Choledocholithiasis with 6 mm common bile duct stone and mild extrahepatic biliary ductal dilatat ion. 2. Mild gallbladder wall thickening with very trace pericholecystic fluid concerning for early acute cholecystitis. 3. Moderate to severe left-sided hydronephrosis with etiology unclear. 4. 10 mm nonobstructing calyceal calculus in the right kidney. 5. Echogenic kidneys bilaterally consistent with medical renal disease. Electronically signed by: Everett Yan MD 06/14/2018 8:42 PM EST
[2018-06-14] MEDS: levETIRAcetam 1000mg/100mL Inj 100 ML IV.SIG SCH (21:02)
[2018-06-14] MEDS: Amantadine 100 MG Capsule PO SCH (21:02)
[2018-06-14] MEDS: QUEtiapine 100 MG Tablet PO SCH (21:02)
[2018-06-15] MEDS ORDERED: Sodium Chloride 0.9% 2 ML Flush PRN IV.FLUSH (00:16)
[2018-06-15] MEDS: KCL 10 mEq/D5W/NaCl 0.45% Inj 1,000 ML IV.CONT SCH ×3 (00:21→19:45)
[2018-06-15] MEDS: LORazepam 0.5 MG Tablet PO SCH ×3 (05:48→22:10)
[2018-06-15] MEDS: levETIRAcetam 1000mg/100mL Inj 100 ML IV.SIG SCH ×3 (05:53→23:17)
[2018-06-15 07:23] LABS: Baso % (Auto) 0.2 % (0.0-2.0); Eos % (Auto) 0.1 % (0.0-4.0); Hematocrit 34.3 % (39.0-51.0); Hemoglobin 11.9 gm/dL (13.0-17.0); Lymph # (Auto) 1.7 th/mm3 (1.0-4.8); Lymph % (Auto) 19.6 % (9.0-44.0); Mean Corpuscular HGB Conc 34.6 % (32.0-36.0); Mean Corpuscular Hemoglobin 31.9 pg (27.0-34.0); Mean Corpuscular Volume 92.2 fL (80.0-100.0); Mean Platelet Volume 7.4 fL (7.0-11.0); Mono # (Auto) 0.9 th/mm3 (0.0-0.9); Mono % (Auto) 9.9 % (0.0-8.0); Neut # (Auto) 6.1 th/mm3 (1.8-7.7); Neut % (Auto) 70.2 % (16.0-70.0); Platelet Count 455 th/mm3 (150-450); Red Blood Count 3.72 mil/mm3 (4.50-5.90); Red Cell Distribution Width 14.3 % (11.6-17.2); White Blood Count 8.7 th/mm3 (4.0-11.0)
[2018-06-15] MEDS: Fenofibrate 145 MG Tablet PO SCH (10:05)
[2018-06-15] MEDS: levoFLOXacin 750 MG Tablet PO SCH (10:05)
[2018-06-15] MEDS: Amantadine 100 MG Capsule PO SCH ×2 (10:05→22:10)
[2018-06-15] MEDS: Ferrous Sulfate 325 MG Tablet PO SCH ×3 (10:06→18:22)
[2018-06-15] MEDS: Sodium Chloride 0.9% 2 ML Flush BID IV.FLUSH SCH ×2 (10:06→22:10)
--- NOTE | 2018-06-15 10:07 | MR ---
EXAM DATE: 06/15/2018 9:59 AM EST AGE/SEX: 53 years / Male INDICATIONS: . Breakthrough seizures. CLINICAL DATA: This is the patient's subsequent encounter. Patient reports that signs and symptoms h ave been present for 2 days and indicates a pain score of 0/10. MEDICAL/SURGICAL HISTORY: Seizures. Hypercholesterolemia. CVA None. COMPARISON: [facility] [place] HEAD W/O CONTRAST, 06/14/2018. . TECHNIQUE: Multiplanar, multisequence examination of the brain was performed without contrast. FINDINGS: There is no evidence for intracranial hemorrhage, mass effect, mass lesions, edema, or ext ra-axial fluid collections. The ventricles are normal size for the patient's age. There are no sign s of acute infarction for technique. The diffusion portion is unremarkable. CONCLUSION: Unremarkable study. Electronically signed by: Lise Ruiz MD 06/15/2018 10:05 AM EST
--- NOTE | 2018-06-15 13:26 | P.PNIM ---
Subjective Interval history: patient reports feeling well. Asking when he will go home. He has not vomited since yesterday. had a regular bowel movement this morning. no abdominal pain. no reported seizures overnight. Has no dizziness or lightheadedness on standing. Physical Exam Vital signs: Last Vital Signs Temp 98.6 F 06/15/18 12:27 Pulse 70 06/15/18 12:27 Resp 20 06/15/18 12:27 BP 97/59 L 06/15/18 12:27 Pulse Ox 97 06/15/18 12:27 Intake & Output 06/13/18 06/14/18 06/15/18 06/16/18 06:59 06:59 06:59 06:59 Intake Total 2612 / 2612 100 / 100 Balance 2612 / 2612 100 / 100 Weight 57.2 kg Narrative: GENERAL:not in acute distress, appears older than stated age. HEENT-not pale,anicteric CVS-s1s2 normal, no murmurs CHEST-CTAB ABDOMEN:not distended, soft, non tender, normoactive bowel sounds, no palpable masses or organomegaly EXT-no pedal edema Neuro: awake,alert, speech is tangential, moves all extremities Results Labs CBC & Chem 7: 06/15/18 06:00 06/14/18 09:34 Imaging Imaging: Impressions Abdomen Ultrasound 06/14/18 00:00 CONCLUSION: 1. Choledocholithiasis with 6 mm common bile duct stone and mild extrahepatic biliary ductal dilatation. 2. Mild gallbladder wall thickening with very trace pericholecystic fluid concerning for early acute cholecystitis. 3. Moderate to severe left-sided hydronephrosis with etiology unclear. 4. 10 mm nonobstructing calyceal calculus in the right kidney. 5. Echogenic kidneys bilaterally consistent with medical renal disease. Head MRI 06/15/18 07:03 CONCLUSION: Unremarkable study. Assessment and Plan Plan 53 yo admitted because of suspected seizure, vomiting, was also noted to have abdominal pain and vomiting on admission. 1.Seizures- MRI brain did not show any acute findings. Phenytoin level noted to be wnl this morning. Keppra dose adjusted to 1000mg tid, continued Dilantin appreciate neurology input. 2.Abdominal pain/vomiting on admission: now resolved. Ultrasound ordered on admission reported on admission showed choledocholithiasis and mild gall bladder thickening with trace pericholecystic fluid concerning for early cholecystitis.Clinically on exam this afternoon he has no signs to suggest an acute cholecystitis. GI and general surgery consults placed overnight. Patient seen by GI, HIDA scan was ordered. 3.Incidental findings of 10mm non obstructing rt stone, and moderate to severe left side hydronephrosis of unclear etiology. possibility of calculi as an etiology given rt renal calculi,may also have left 4. Hypokalemia--replete, repeat BMP this afternoon to re-evaluate. 5. Acute kidney injury- likely prerenal in the setting of vomiting yesterday. Also has moderate to severe hydronephrosis left kidney of unclear etiology. concern whether this could be related given h/o rt calculi. repeat BMP this afternoon to re-evaluate, if FRANCHESKA persistent despite hydration then will consult urology to further evaluate. strict i/o charting. -mild metabolic acidosis likely in the setting of FRANCHESKA. 6. Mildly elevated glucose-prediabetic range, can follow up as outpatient. Progress Note: Quality VTE Deep Vein Thrombosis/Pulmonary Embolism Present on Admission: No
--- NOTE | 2018-06-15 13:45 | P.CONGI ---
History of Present Illness Consult date: 06/15/18 Consult reason: Choledocholithiasis with 6 mm common bile duct stone Mild extrahepatic biliary ductal dilatation Chief complaint: Seizure, UTI History of Present Illness: This patient is a 53-year-old male patient who was sent to the emergency room on 06/14/2018 from [facility]. Patient had a complaint of nausea and vomiting with altered mental status. This patient has a medical history significant for seizure activity, anemia, ataxia, CVA, constipation, depression, hypertension and hyperlipidemia. Surgical history not known. Patient denies any use of tobacco or alcohol products. Upon admission, abdominal ultrasound revealed choledocholithiasis with 6 mm common bile duct stone. Our service has been consulted to evaluate patient further for abdominal ultrasound findings. <Zoë Peralta - Last Filed: 06/15/18 13:31> Review of Systems All other systems reviewed negative except as stated in HPI <Zoë Peralta - Last Filed: 06/15/18 13:31> PMFSH - History History Provided By: Patient, Healthcare Administrative Assistant / EMT - Medical History Medical History: Medical History (Last Reviewed 06/14/18 @ 14:49 by GORDO Roy) Anemia Ataxia CVA (cerebral vascular accident) Constipation Depression HTN (hypertension) Hyperlipemia Seizure Surgical history unknown - Tobacco History Second Hand Smoke Exposure: No Tobacco Use In Past 30 Days: No Smoking Status: Never smoker - Alcohol History How Often Do You Have a Drink Containing Alcohol: Never - Substance Use History Substance History: No History of Abuse - Travel History Recent Travel in the [place] Within the Last 8 Weeks: No Recent Travel Out of the Country Within the Last 8 Weeks: No - Immunization History Tetanus Immunization: Unable to Assess <Zoë Peralta - Last Filed: 06/15/18 13:31> - Medical History Medical History: Medical History (Last Reviewed 06/14/18 @ 14:49 by GORDO Roy) Anemia Ataxia CVA (cerebral vascular accident) Constipation Depression HTN (hypertension) Hyperlipemia Seizure Surgical history unknown <Karyn Stallworth - Last Filed: 06/15/18 18:35> Medications and Allergies Active Medications: Active Medications Al Hydroxide/Mg Hydroxide (Milk Of Magnesia Liq) 30 ml PO Q12H PRN PRN Reason: Mild Constipation Amantadine HCl (Symmetrel) 100 mg PO BID [facility] Last Admin: 06/15/18 10:05 Dose: 100 mg Aspirin (Aspirin Chew) 81 mg PO DAILY [facility] Last Admin: 06/15/18 10:06 Dose: 81 mg Bisacodyl (Dulcolax Supp) 10 mg RECTAL DAILY PRN PRN Reason: SEVERE CONSITIPATION Fenofibrate (Tricor) 145 mg PO DAILY [facility] Last Admin: 06/15/18 10:05 Dose: 145 mg Ferrous Sulfate (Ferosul) 325 mg PO TID [facility] Last Admin: 06/15/18 13:20 Dose: 325 mg Potassium Chloride/Dextrose/Sod Cl (D5w/1/2ns + Kcl 10 Meq Inj) 1,000 mls @ 100 mls/hr IV.CONT .Q10H [facility] Last Admin: 06/15/18 06:13 Dose: 100 mls/hr Levetiracetam (Keppra 1000 Mg/100 Ml Premix) 100 mls @ 400 mls/hr IV.SIG Q8HR [facility] Last Admin: 06/15/18 13:21 Dose: 400 mls/hr Metronidazole/Sodium Chloride (Flagyl 500 Mg Inj) 100 mls @ 100 mls/hr IV.SIG Q6H [facility] Last Infusion: 06/15/18 11:03 Dose: Infused Lactulose (Lactulose Liq) 30 ml PO DAILY PRN PRN Reason: SEVERE CONSITIPATION Levofloxacin (Levaquin) 750 mg PO DAILY [facility] Last Admin: 06/15/18 10:05 Dose: 750 mg Lorazepam (Ativan Inj) 1 mg IV.PUSH ONCE PRN PRN Reason: SEIZURES Last Admin: 06/14/18 18:28 Dose: 1 mg Lorazepam (Ativan) 0.5 mg PO Q8HR [facility] Last Admin: 06/15/18 13:20 Dose: 0.5 mg Ondansetron HCl (Zofran Inj) 4 mg IV.PUSH Q6H PRN PRN Reason: NAUSEA OR VOMITING Last Admin: 06/14/18 14:56 Dose: 4 mg Phenytoin Sodium (Dilantin Inj) 100 mg IV.PUSH Q6HR [facility] Last Admin: 06/15/18 13:21 Dose: 100 mg Quetiapine Fumarate (Seroquel) 100 mg PO HS [facility] Last Admin: 06/14/18 21:02 Dose: 100 mg Sennosides (Senokot) 17.2 mg PO Q12H PRN PRN Reason: Moderate Constipation Sodium Chloride (Ns Flush) 2 ml IV.FLUSH BID [facility] Last Admin: 06/15/18 10:06 Dose: 2 ml Sodium Chloride (Ns Flush) 2 ml IV.FLUSH PRN PRN PRN Reason: FLUSH AFTER USING IV ACCESS <Zoë Peralta - Last Filed: 06/15/18 13:31> Active Medications: Active Medications Al Hydroxide/Mg Hydroxide (Milk Of Magnesia Liq) 30 ml PO Q12H PRN PRN Reason: Mild Constipation Amantadine HCl (Symmetrel) 100 mg PO BID [facility] Last Admin: 06/15/18 10:05 Dose: 100 mg Aspirin (Aspirin Chew) 81 mg PO DAILY [facility] Last Admin: 06/15/18 10:06 Dose: 81 mg Bisacodyl (Dulcolax Supp) 10 mg RECTAL DAILY PRN PRN Reason: SEVERE CONSITIPATION Fenofibrate (Tricor) 145 mg PO DAILY [facility] Last Admin: 06/15/18 10:05 Dose: 145 mg Ferrous Sulfate (Ferosul) 325 mg PO TID [facility] Last Admin: 06/15/18 18:22 Dose: 325 mg Potassium Chloride/Dextrose/Sod Cl (D5w/1/2ns + Kcl 10 Meq Inj) 1,000 mls @ 100 mls/hr IV.CONT .Q10H [facility] Last Admin: 06/15/18 06:13 Dose: 100 mls/hr Levetiracetam (Keppra 1000 Mg/100 Ml Premix) 100 mls @ 400 mls/hr IV.SIG Q8HR [facility] Last Infusion: 06/15/18 14:08 Dose: Infused Metronidazole/Sodium Chloride (Flagyl 500 Mg Inj) 100 mls @ 100 mls/hr IV.SIG Q6H [facility] Last Admin: 06/15/18 18:22 Dose: 100 mls/hr Lactulose (Lactulose Liq) 30 ml PO DAILY PRN PRN Reason: SEVERE CONSITIPATION Levofloxacin (Levaquin) 750 mg PO DAILY [facility] Last Admin: 06/15/18 10:05 Dose: 750 mg Lorazepam (Ativan Inj) 1 mg IV.PUSH ONCE PRN PRN Reason: SEIZURES Last Admin: 06/14/18 18:28 Dose: 1 mg Lorazepam (Ativan) 0.5 mg PO Q8HR [facility] Last Admin: 06/15/18 13:20 Dose: 0.5 mg Ondansetron HCl (Zofran Inj) 4 mg IV.PUSH Q6H PRN PRN Reason: NAUSEA OR VOMITING Last Admin: 06/14/18 14:56 Dose: 4 mg Phenytoin Sodium (Dilantin Inj) 100 mg IV.PUSH Q6HR [facility] Last Admin: 06/15/18 18:22 Dose: 100 mg Quetiapine Fumarate (Seroquel) 100 mg PO HS [facility] Last Admin: 06/14/18 21:02 Dose: 100 mg Sennosides (Senokot) 17.2 mg PO Q12H PRN PRN Reason: Moderate Constipation Sodium Chloride (Ns Flush) 2 ml IV.FLUSH BID [facility] Last Admin: 06/15/18 10:06 Dose: 2 ml Sodium Chloride (Ns Flush) 2 ml IV.FLUSH PRN PRN PRN Reason: FLUSH AFTER USING IV ACCESS <Karyn Stallworth - Last Filed: 06/15/18 18:35> Allergies Allergy/AdvReac Type Severity Reaction Status Date / Time ipratropium Allergy Severe unknown Verified 06/14/18 11:39 penicillin G Allergy Severe unknown Verified 06/14/18 11:39 Home Medications Medication Instructions Recorded Confirmed Type amantadine HCl 100 mg PO BID 06/14/18 06/14/18 History aspirin 81 mg PO DAILY 06/14/18 06/14/18 History fenofibrate 160 mg PO DAILY 06/14/18 06/14/18 History ferrous sulfate 325 mg PO TID 06/14/18 06/14/18 History levetiracetam [Keppra] 1,000 mg PO TID 06/14/18 06/14/18 History lorazepam 0.5 mg PO Q8H 06/14/18 06/14/18 History phenytoin sodium extended 100 mg PO TID 06/14/18 06/14/18 History [Dilantin Extended] quetiapine 100 mg PO HS 06/14/18 06/14/18 History Exam Vital signs: Vital Signs 06/14/18 13:46 06/14/18 16:12 06/14/18 20:00 Temperature 97.7 F 98.7 F Pulse Rate 67 89 78 Respiratory Rate 24 16 19 Blood Pressure 152/90 H 122/58 L 126/69 Pulse Oximetry 97 98 06/15/18 04:00 06/15/18 07:18 06/15/18 12:27 Temperature 98.5 F 98.3 F 98.6 F Pulse Rate 65 72 70 Respiratory Rate 17 18 20 Blood Pressure 113/68 107/63 97/59 L Pulse Oximetry 98 98 97 Intake & Output 06/14/18 06/15/18 06/15/18 18:59 06:59 18:59 Intake Total 1212 / 1212 1400 / 1400 100 / 100 Balance 1212 / 1212 1400 / 1400 100 / 100 Weight 58.51 kg 57.2 kg Intake: IV 1212 / 1212 1400 / 1400 100 / 100 D5W/1/2NS + KCL 10 mEq Inj 1, 1000 / 1000 000 ML @ 100 mls/hr IV.CONT . Q10H [facility] Rx#:[id number] Levaquin 750 mg Premix Inj 150 150 / 150 ML @ 100 mls/hr IV.SIG ONCE ONE Rx#:[id number] Dilantin Inj 600 MG In NS Inj 62 / 62 50 ML @ 248 mls/hr IV.SIG ONCE ONE Rx#:[id number] NS Inj 1,000 ML @ Wide Open IV. 1000 / 1000 SIG BOLUS ONE Rx#:[id number] Keppra 1000 mg/100 mL Premix 200 / 200 100 ML @ 400 mls/hr IV.SIG Q8HR [facility] Rx#:[id number] Flagyl 500 MG Inj 100 ML @ 100 200 / 200 100 / 100 mls/hr IV.SIG Q6H [facility] Rx#: [id number] Other: Post Void Residual 1 # Voids 3 Weight On Admission 58.51 kg - Constitutional no acute distress - Routine HEENT Exam Head: Present: normocephalic - Routine Neck Exam Present: supple - Routine Respiratory Exam Present: CTA bilaterally. Absent: accessory muscle use - Routine Cardiovascular Exam Present: RRR - Routine Abdominal Exam Present: soft, normoactive bowel sounds. Absent: tenderness, distended, guarding, firm - Routine Skin Exam Present: dry, warm - Routine Neurological Exam Present: alert - Routine Psychiatric Exam Present: normal affect, cooperative <Peralta,Zoë - Last Filed: 06/15/18 13:31> Vital signs: Vital Signs 06/14/18 20:00 06/15/18 04:00 06/15/18 07:00 Temperature 98.7 F 98.5 F Pulse Rate 78 65 Respiratory Rate 19 17 Blood Pressure 126/69 113/68 Pulse Oximetry 98 98 96 06/15/18 07:18 06/15/18 08:00 06/15/18 12:27 Temperature 98.3 F 98.6 F Pulse Rate 72 70 Respiratory Rate 18 20 Blood Pressure 107/63 97/59 L Pulse Oximetry 98 96 97 Intake & Output 06/14/18 06/15/18 06/15/18 18:59 06:59 18:59 Intake Total 1212 / 1212 1400 / 1400 200 / 200 Balance 1212 / 1212 1400 / 1400 200 / 200 Weight 58.51 kg 57.2 kg Intake: IV 1212 / 1212 1400 / 1400 200 / 200 D5W/1/2NS + KCL 10 mEq Inj 1, 1000 / 1000 000 ML @ 100 mls/hr IV.CONT . Q10H [facility] Rx#:[id number] Levaquin 750 mg Premix Inj 150 150 / 150 ML @ 100 mls/hr IV.SIG ONCE ONE Rx#:[id number] Dilantin Inj 600 MG In NS Inj 62 / 62 50 ML @ 248 mls/hr IV.SIG ONCE ONE Rx#:[id number] NS Inj 1,000 ML @ Wide Open IV. 1000 / 1000 SIG BOLUS ONE Rx#:[id number] Keppra 1000 mg/100 mL Premix 200 / 200 100 / 100 100 ML @ 400 mls/hr IV.SIG Q8HR [facility] Rx#:[id number] Flagyl 500 MG Inj 100 ML @ 100 200 / 200 100 / 100 mls/hr IV.SIG Q6H [facility] Rx#: [id number] Other: Post Void Residual 1 # Voids 3 Weight On Admission 58.51 kg <Karyn Stallworth - Last Filed: 06/15/18 18:35> Results - Labs CBC & Chem 7: 06/15/18 06:00 06/14/18 09:34 Labs: Laboratory Results - last 24 hr 06/14/18 06/14/18 06/15/18 09:34 16:20 06:00 WBC 8.7 RBC 3.72 L Hgb 11.9 L D Hct 34.3 L MCV 92.2 MCH 31.9 MCHC 34.6 RDW 14.3 Plt Count 455 H MPV 7.4 Neut % (Auto) 70.2 H Lymph % (Auto) 19.6 [place] % (Auto) 9.9 H Eos % (Auto) 0.1 Baso % (Auto) 0.2 Neut # (Auto) 6.1 Lymph # (Auto) 1.7 [place] # (Auto) 0.9 Eos # (Auto) 0.0 Baso # (Auto) 0.0 WBC Differential . Differential Comment Auto diff final POC Glucose 130 H Lipase 235 Phenytoin 06/15/18 06:10 WBC RBC Hgb Hct MCV MCH MCHC RDW Plt Count MPV Neut % (Auto) Lymph % (Auto) [place] % (Auto) Eos % (Auto) Baso % (Auto) Neut # (Auto) Lymph # (Auto) [place] # (Auto) Eos # (Auto) Baso # (Auto) WBC Differential Differential Comment POC Glucose Lipase Phenytoin 15.8 - Imaging Impressions Abdomen Ultrasound 06/14/18 00:00 CONCLUSION: 1. Choledocholithiasis with 6 mm common bile duct stone and mild extrahepatic biliary ductal dilatation. 2. Mild gallbladder wall thickening with very trace pericholecystic fluid concerning for early acute cholecystitis. 3. Moderate to severe left-sided hydronephrosis with etiology unclear. 4. 10 mm nonobstructing calyceal calculus in the right kidney. 5. Echogenic kidneys bilaterally consistent with medical renal disease. Head MRI 06/15/18 07:03 CONCLUSION: Unremarkable study. <Zoë Peralta - Last Filed: 06/15/18 13:31> - Labs CBC & Chem 7: 06/15/18 06:00 06/14/18 09:34 Labs: Laboratory Results - last 24 hr 06/14/18 06/15/18 06/15/18 10:28 06:00 06:10 WBC 8.7 RBC 3.72 L Hgb 11.9 L D Hct 34.3 L MCV 92.2 MCH 31.9 MCHC 34.6 RDW 14.3 Plt Count 455 H MPV 7.4 Neut % (Auto) 70.2 H Lymph % (Auto) 19.6 [place] % (Auto) 9.9 H Eos % (Auto) 0.1 Baso % (Auto) 0.2 Neut # (Auto) 6.1 Lymph # (Auto) 1.7 [place] # (Auto) 0.9 Eos # (Auto) 0.0 Baso # (Auto) 0.0 WBC Differential . Differential Comment Auto diff final Urine Color Yellow Urine Clarity Turbid H Urine pH 6.0 Ur Specific [place] 1.015 Urine Protein 100 H Urine Glucose (UA) Negative Urine Ketones Negative Urine Occult Blood Small H Urine Nitrate Negative Urine Bilirubin Negative Urine Urobilinogen Less than 2 Ur Leukocyte Esterase Large H Urine RBC 8 H Urine WBC Urine WBC Clumps Many H Urine Bacteria Many H Hyaline Casts 15 Urine Mucus Few H Micro UA Comment Cath-culture ind Urine Culture Comments Cath-cult indicated Phenytoin 15.8 - Imaging Impressions Abdomen Ultrasound 06/14/18 00:00 CONCLUSION: 1. Choledocholithiasis with 6 mm common bile duct stone and mild extrahepatic biliary ductal dilatation. 2. Mild gallbladder wall thickening with very trace pericholecystic fluid concerning for early acute cholecystitis. 3. Moderate to severe left-sided hydronephrosis with etiology unclear. 4. 10 mm nonobstructing calyceal calculus in the right kidney. 5. Echogenic kidneys bilaterally consistent with medical renal disease. Hepatobiliary Scan Nuclear Medicine 06/15/18 00:00 CONCLUSION: 1. Nonfilling of the gallbladder and of concern for cholecystitis/cystic duct obstruction in the proper clinical setting. 2. Patent common bile duct. The stone seen on the ultrasound may have passed or migrated proximally into the cystic duct. If it remains within the common bile duct is apparently not obstructed. Head MRI 06/15/18 07:03 CONCLUSION: Unremarkable study. <Karyn Stallworth - Last Filed: 06/15/18 18:35> Assessment and Plan (1) Choledocholithiasis Status: Acute Code(s): K80.50 - Calculus of bile duct without cholangitis or cholecystitis without obstruction - Plan This patient is a 53-year-old male patient who was sent to the emergency room on 06/14/2018 from [facility]. Patient had a complaint of nausea and vomiting with altered mental status. This patient has a medical history significant for seizure activity, anemia, ataxia, CVA, constipation, depression, hypertension and hyperlipidemia. Surgical history not known. Patient denies any use of tobacco or alcohol products. Upon admission, abdominal ultrasound revealed choledocholithiasis with 6 mm common bile duct stone. Our service has been consulted to evaluate patient further for abdominal ultrasound findings. Choledocholithiasis- admitted to [facility] on 06/14/2018 with report of nausea and vomiting. Abdominal ultrasound revealed the following findings: 1. Choledocholithiasis with 6 mm common bile duct stone and mild extrahepatic biliary ductal dilatation. 2. Mild gallbladder wall thickening with very trace pericholecystic fluid concerning for early acute cholecystitis. 3. Moderate to severe left-sided hydronephrosis with etiology unclear. 4. 10 mm nonobstructing calyceal calculus in the right kidney. 5. Echogenic kidneys bilaterally consistent with medical renal disease. (06/15/2018)-hemoglobin 11.9 hematocrit 34.3 (06/14/18)- total bilirubin 0.5 AST 26 ALT 24 alk phos 99 lipase 235 Plan -Diet as tolerated -HIDA scan -Possible need for ERCP -Monitor labs -Analgesics and antiemetics as per attending -Supportive care -Further recommendations to follow This patient has been seen by myself and Dr. Stallworth and this note is written on her behalf - Attending Attestation Dr. Stallworth <Zoë Peralta - Last Filed: 06/15/18 13:31> (1) Choledocholithiasis Status: Acute Code(s): K80.50 - Calculus of bile duct without cholangitis or cholecystitis without obstruction - Attending Attestation seen, examined agree with above ercp in am <Karyn Stallworth - Last Filed: 06/15/18 18:35>
--- NOTE | 2018-06-15 15:09 | P.CONGS ---
[facility] Gen Surgery Consult Note Consult date: 06/15/18 Reason for consult: other (possible early cholecystitis) Requesting physician: Marietta Coyne Narrative: This is a 53-year-old male with a past medical history of CVA, anemia, ataxia, depression, hypertension, dyslipidemia and seizure. The patient is a long-term resident of a local [place] health care facility and was sent to the emergency room for increased confusion and vomiting. He did reportedly have a seizure. A abdomen ultrasound was done which shows choledocholithiasis with a 6 mm common bile duct stone and mild extrahepatic biliary ductal dilatation. There is mild gallbladder wall thickening with very trace pericholecystic fluid concerning for early acute cholecystitis. On admission, the patient's white count blood cell count was 16,000 and today is now down to 8,700. The patient does have normal liver enzymes. The patient's lipase is 235. A HIDA scan has been ordered by GI. The patient reports he has never been told he has a gallbladder problem or ever had any right upper quadrant abdominal pain. A General Surgery consultation has been requested. Review of Systems All other systems reviewed negative except as stated in [facility] - History History Provided By: Patient - Medical History Medical History: Medical History (Last Reviewed 06/15/18 @ 15:06 by FARHAN Chester) Anemia Ataxia CVA (cerebral vascular accident) Constipation Depression HTN (hypertension) Hyperlipemia Seizure Surgical history unknown - Tobacco History Second Hand Smoke Exposure: No Tobacco Use In Past 30 Days: No Smoking Status: Never smoker - Alcohol History How Often Do You Have a Drink Containing Alcohol: Never - Substance Use History Substance History: No History of Abuse - Travel History Recent Travel in the [place] Within the Last 8 Weeks: No Recent Travel Out of the Country Within the Last 8 Weeks: No - Immunization History Tetanus Immunization: Unable to Assess Medications and Allergies Allergies Allergy/AdvReac Type Severity Reaction Status Date / Time ipratropium Allergy Severe unknown Verified 06/14/18 11:39 penicillin G Allergy Severe unknown Verified 06/14/18 11:39 Home Medications Medication Instructions Recorded Confirmed Type amantadine HCl 100 mg PO BID 06/14/18 06/14/18 History aspirin 81 mg PO DAILY 06/14/18 06/14/18 History fenofibrate 160 mg PO DAILY 06/14/18 06/14/18 History ferrous sulfate 325 mg PO TID 06/14/18 06/14/18 History levetiracetam [Keppra] 1,000 mg PO TID 06/14/18 06/14/18 History lorazepam 0.5 mg PO Q8H 06/14/18 06/14/18 History phenytoin sodium extended 100 mg PO TID 06/14/18 06/14/18 History [Dilantin Extended] quetiapine 100 mg PO HS 06/14/18 06/14/18 History Active Medications: Active Medications Al Hydroxide/Mg Hydroxide (Milk Of Magnesia Liq) 30 ml PO Q12H PRN PRN Reason: Mild Constipation Amantadine HCl (Symmetrel) 100 mg PO BID [facility] Last Admin: 06/15/18 10:05 Dose: 100 mg Aspirin (Aspirin Chew) 81 mg PO DAILY [facility] Last Admin: 06/15/18 10:06 Dose: 81 mg Bisacodyl (Dulcolax Supp) 10 mg RECTAL DAILY PRN PRN Reason: SEVERE CONSITIPATION Fenofibrate (Tricor) 145 mg PO DAILY [facility] Last Admin: 06/15/18 10:05 Dose: 145 mg Ferrous Sulfate (Ferosul) 325 mg PO TID [facility] Last Admin: 06/15/18 13:20 Dose: 325 mg Potassium Chloride/Dextrose/Sod Cl (D5w/1/2ns + Kcl 10 Meq Inj) 1,000 mls @ 100 mls/hr IV.CONT .Q10H [facility] Last Admin: 06/15/18 06:13 Dose: 100 mls/hr Levetiracetam (Keppra 1000 Mg/100 Ml Premix) 100 mls @ 400 mls/hr IV.SIG Q8HR [facility] Last Infusion: 06/15/18 14:08 Dose: Infused Metronidazole/Sodium Chloride (Flagyl 500 Mg Inj) 100 mls @ 100 mls/hr IV.SIG Q6H [facility] Last Infusion: 06/15/18 11:03 Dose: Infused Lactulose (Lactulose Liq) 30 ml PO DAILY PRN PRN Reason: SEVERE CONSITIPATION Levofloxacin (Levaquin) 750 mg PO DAILY [facility] Last Admin: 06/15/18 10:05 Dose: 750 mg Lorazepam (Ativan Inj) 1 mg IV.PUSH ONCE PRN PRN Reason: SEIZURES Last Admin: 06/14/18 18:28 Dose: 1 mg Lorazepam (Ativan) 0.5 mg PO Q8HR [facility] Last Admin: 06/15/18 13:20 Dose: 0.5 mg Ondansetron HCl (Zofran Inj) 4 mg IV.PUSH Q6H PRN PRN Reason: NAUSEA OR VOMITING Last Admin: 06/14/18 14:56 Dose: 4 mg Phenytoin Sodium (Dilantin Inj) 100 mg IV.PUSH Q6HR [facility] Last Admin: 06/15/18 13:21 Dose: 100 mg Quetiapine Fumarate (Seroquel) 100 mg PO HS [facility] Last Admin: 06/14/18 21:02 Dose: 100 mg Sennosides (Senokot) 17.2 mg PO Q12H PRN PRN Reason: Moderate Constipation Sodium Chloride (Ns Flush) 2 ml IV.FLUSH BID [facility] Last Admin: 06/15/18 10:06 Dose: 2 ml Sodium Chloride (Ns Flush) 2 ml IV.FLUSH PRN PRN PRN Reason: FLUSH AFTER USING IV ACCESS Exam Vital signs: Vital Signs 06/14/18 16:12 06/14/18 20:00 06/15/18 04:00 Temperature 97.7 F 98.7 F 98.5 F Pulse Rate 89 78 65 Respiratory Rate 16 19 17 Blood Pressure 122/58 L 126/69 113/68 Pulse Oximetry 98 98 06/15/18 07:18 06/15/18 12:27 Temperature 98.3 F 98.6 F Pulse Rate 72 70 Respiratory Rate 18 20 Blood Pressure 107/63 97/59 L Pulse Oximetry 98 97 Intake & Output 06/14/18 06/15/18 06/15/18 18:59 06:59 18:59 Intake Total 1212 / 1212 1400 / 1400 200 / 200 Balance 1212 / 1212 1400 / 1400 200 / 200 Weight 58.51 kg 57.2 kg Intake: IV 1212 / 1212 1400 / 1400 200 / 200 D5W/1/2NS + KCL 10 mEq Inj 1, 1000 / 1000 000 ML @ 100 mls/hr IV.CONT . Q10H [facility] Rx#:[id number] Levaquin 750 mg Premix Inj 150 150 / 150 ML @ 100 mls/hr IV.SIG ONCE ONE Rx#:[id number] Dilantin Inj 600 MG In NS Inj 62 / 62 50 ML @ 248 mls/hr IV.SIG ONCE ONE Rx#:[id number] NS Inj 1,000 ML @ Wide Open IV. 1000 / 1000 SIG BOLUS ONE Rx#:[id number] Keppra 1000 mg/100 mL Premix 200 / 200 100 / 100 100 ML @ 400 mls/hr IV.SIG Q8HR [facility] Rx#:[id number] Flagyl 500 MG Inj 100 ML @ 100 200 / 200 100 / 100 mls/hr IV.SIG Q6H [facility] Rx#: [id number] Other: Post Void Residual 1 # Voids 3 Weight On Admission 58.51 kg Narrative: GENERAL: Thin 53 year old male resting in bed in no acute distress. SKIN: Warm and dry. HEAD: Atraumatic. Normocephalic. EYES: Pupils equal and round. No scleral icterus. No injection or drainage. ENT: No nasal bleeding or discharge. Mucous membranes pink and moist. NECK: Trachea midline. CARDIOVASCULAR: Regular rate and rhythm. RESPIRATORY: No accessory muscle use. Clear to auscultation. Breath sounds equal bilaterally. GASTROINTESTINAL: Abdomen soft, non-tender, nondistended. No visible scars of hernias. MUSCULOSKELETAL: Extremities without clubbing, cyanosis, or edema. No obvious deformities. NEUROLOGICAL: Awake and alert. No obvious cranial nerve deficits. Motor grossly within normal limits. Five out of 5 muscle strength in the arms and legs. Normal speech. PSYCHIATRIC: Appropriate mood and affect; insight and judgment normal. Results - Labs 06/17/18 06:38 06/17/18 06:38 Laboratory Results WBC 7.8 th/mm3 (4.0-11.0) 06/17/18 06:38 RBC 4.30 mil/mm3 (4.50-5.90) L 06/17/18 06:38 Hgb 14.0 gm/dL (13.0-17.0) 06/17/18 06:38 Hct 40.6 % (39.0-51.0) 06/17/18 06:38 MCV 94.5 fL (80.0-100.0) 06/17/18 06:38 MCH 32.5 pg (27.0-34.0) 06/17/18 06:38 MCHC 34.4 % (32.0-36.0) 06/17/18 06:38 RDW 14.4 % (11.6-17.2) 06/17/18 06:38 Plt Count 453 th/mm3 (150-450) H 06/17/18 06:38 MPV 7.4 fL (7.0-11.0) 06/17/18 06:38 Neut % (Auto) 70.2 % (16.0-70.0) H 06/15/18 06:00 Lymph % (Auto) 19.6 % (9.0-44.0) 06/15/18 06:00 [place] % (Auto) 9.9 % (0.0-8.0) H 06/15/18 06:00 Eos % (Auto) 0.1 % (0.0-4.0) 06/15/18 06:00 Baso % (Auto) 0.2 % (0.0-2.0) 06/15/18 06:00 Neut # (Auto) 6.1 th/mm3 (1.8-7.7) 06/15/18 06:00 Lymph # (Auto) 1.7 th/mm3 (1.0-4.8) 06/15/18 06:00 [place] # (Auto) 0.9 th/mm3 (0.0-0.9) 06/15/18 06:00 Eos # (Auto) 0.0 th/mm3 (0.0-0.4) 06/15/18 06:00 Baso # (Auto) 0.0 th/mm3 (0.0-0.2) 06/15/18 06:00 WBC Differential . 06/15/18 06:00 Differential Comment Auto diff final 06/15/18 06:00 Sodium 142 meq/L (136-145) 06/17/18 06:38 Potassium 3.3 meq/L (3.5-5.1) L 06/17/18 06:38 Chloride 107 meq/L (98-107) 06/17/18 06:38 Carbon Dioxide 26.9 meq/L (21.0-32.0) 06/17/18 06:38 Anion Gap 8 meq/L (5-15) 06/17/18 06:38 BUN 7 mg/dL (7-18) 06/17/18 06:38 Creatinine 0.88 mg/dL (0.60-1.30) 06/17/18 06:38 Estimated GFR Greater than 89 mL/min (>89) 06/17/18 06:38 POC Glucose 130 mg/dl (68-110) H 06/14/18 16:20 Random Glucose 109 mg/dL (74-106) H 06/17/18 06:38 Calcium 9.0 mg/dL (8.5-10.1) 06/17/18 06:38 Total Bilirubin 0.4 mg/dL (0.2-1.0) 06/17/18 06:38 AST 29 U/L (15-37) 06/17/18 06:38 ALT 23 U/L (12-78) 06/17/18 06:38 Alkaline Phosphatase 81 U/L (45-117) 06/17/18 06:38 Total Creatine Kinase 126 U/L (39-308) 06/14/18 09:34 CK-MB (CK-2) 3.3 ng/mL (0.5-3.6) 06/14/18 09:34 Total Protein 7.5 g/dL (6.4-8.2) D 06/17/18 06:38 Albumin 3.3 g/dL (3.4-5.0) L 06/17/18 06:38 Lipase 235 U/L (73-393) 06/14/18 09:34 Urine Color Yellow (Yellw/Straw) 06/14/18 10:28 Urine Clarity Turbid (Clear) H 06/14/18 10:28 Urine pH 6.0 (5.0-8.5) 06/14/18 10:28 Ur Specific [place] 1.015 (1.002-1.035) 06/14/18 10:28 Urine Protein 100 mg/dL (Neg-Trace) H 06/14/18 10:28 Urine Glucose (UA) Negative mg/dL (Negative) 06/14/18 10:28 Urine Ketones Negative mg/dL (Negative) 06/14/18 10:28 Urine Occult Blood Small (Negative) H 06/14/18 10:28 Urine Nitrate Negative (Negative) 06/14/18 10:28 Urine Bilirubin Negative (Negative) 06/14/18 10:28 Urine Urobilinogen Less than 2 mg/dL (Less than 2) 06/14/18 10:28 Ur Leukocyte Esterase Large (Negative) H 11/05/18 10:28 Urine RBC 8 /hpf (0-3) H 06/14/18 10:28 Urine WBC /hpf (0-5) 06/14/18 10:28 Urine WBC Clumps Many (None) H 06/14/18 10:28 Urine Bacteria Many /hpf (None) H 06/14/18 10:28 Hyaline Casts 15 /lpf (0-3) 06/14/18 10:28 Urine Mucus Few /lpf (Occasional) H 06/14/18 10:28 Micro UA Comment Cath-culture ind 06/14/18 10:28 Ur Microscopic Review Not Reportable 06/14/18 10:28 Urine Culture Comments Cath-cult indicated 06/14/18 10:28 Phenytoin 15.8 mcg/mL (10.0-20.0) 06/15/18 06:10 Impressions Abdomen Ultrasound 06/14/18 00:00 CONCLUSION: 1. Choledocholithiasis with 6 mm common bile duct stone and mild extrahepatic biliary ductal dilatation. 2. Mild gallbladder wall thickening with very trace pericholecystic fluid concerning for early acute cholecystitis. 3. Moderate to severe left-sided hydronephrosis with etiology unclear. 4. 10 mm nonobstructing calyceal calculus in the right kidney. 5. Echogenic kidneys bilaterally consistent with medical renal disease. Head CT 06/14/18 11:15 CONCLUSION: 1. No acute intracranial abnormality. . Hepatobiliary Scan Nuclear Medicine 06/15/18 00:00 CONCLUSION: 1. Nonfilling of the gallbladder and of concern for cholecystitis/cystic duct obstruction in the proper clinical setting. 2. Patent common bile duct. The stone seen on the ultrasound may have passed or migrated proximally into the cystic duct. If it remains within the common bile duct is apparently not obstructed. Head MRI 06/15/18 07:03 CONCLUSION: Unremarkable study. GI Procedure 06/16/18 00:00 CONCLUSION: Common bile duct filling defects Mild distention of the common bile duct. Abdomen/Pelvis CT 06/17/18 00:00 CONCLUSION: 1. Significant hydronephrosis left kidney due to a large left proximal ureteral stone. 2. Gallbladder with stones. 3. Tiny right renal stone nonobstructing. - Imaging Imaging: ITS Impressions Abdomen Ultrasound 06/14/18 00:00 CONCLUSION: 1. Choledocholithiasis with 6 mm common bile duct stone and mild extrahepatic biliary ductal dilatation. 2. Mild gallbladder wall thickening with very trace pericholecystic fluid concerning for early acute cholecystitis. 3. Moderate to severe left-sided hydronephrosis with etiology unclear. 4. 10 mm nonobstructing calyceal calculus in the right kidney. 5. Echogenic kidneys bilaterally consistent with medical renal disease. Head CT 06/14/18 11:15 CONCLUSION: 1. No acute intracranial abnormality. . Head MRI 06/15/18 07:03 CONCLUSION: Unremarkable study. US - abdomen: report reviewed Assessment and Plan - Assessment (1) Choledocholithiasis Code(s): K80.50 - Calculus of bile duct without cholangitis or cholecystitis without obstruction Status: Acute Plan: 53 year old male with complex medical history including CVA, HTN; with choledocholithiasis -GI also consulted---have ordered HIDA scan -CMP tomorrow morning -Will await results of HIDA scan ---may need ERCP -From there we can discuss if there is a need for surgical intervention -Thank you for this consult; We will continue to follow - Plan Discussed Condition With: Dr. Edwin Evans - Attending Attestation The exam, history, and the medical decision-making described in the above note were completed with the assistance of the mid-level provider. I reviewed and agree with the findings presented. I attest that I had a [id number] encounter with the patient on the same day, and personally performed and documented my assessment and findings in the medical record. Patient with CBD stones Abdominal exam soft, nontender, non-surgical Recommend GI eval, possible ERCP, will d/w family surgery after ERCP, patient is high risk for surgery
--- NOTE | 2018-06-15 15:14 | MG ---
cc: Ervin Bueno MD, PhD DATE OF STUDY: 06/14/2018 TEST NUMBER: [id number] TECHNIQUE: A 17-channel EEG. DESCRIPTION: Background rhythm reveals a symmetrical alpha rhythm, frequency of 8 Hz. There is some muscle artifact present as well as eye movement artifact. There is some slowing later in the tracing in the theta range, probably drowsiness. No lateralizing features identified and no epileptiform features are identified. Hyperventilation was not performed. Photic stimulation was done in a stepwise fashion with a fairly well-developed driving response. INTERPRETATION: Overall normal EEG. There is some slowing present, probably related to drowsiness. Ervin Bueno MD, PhD SHANNON/ , 02:49 PM , 02:57 PM
--- NOTE | 2018-06-15 18:20 | NM ---
EXAM DATE: 06/15/2018 6:07 PM EST AGE/SEX: 53 years / Male INDICATIONS: Abdominal pain. CLINICAL DATA: This is the patient's initial encounter. Patient reports that signs and symptoms have been present for 1 day and indicates a pain score of 4/10. MEDICAL/SURGICAL HISTORY: Hypertension. Seizures. Anemia. Gallstones. None. [place] [facility] [facility] [place]. . DOSE: 4.4 mCi Tc-99m mebrofenin i.v. TECHNIQUE: Following the intravenous administration of radiotracer, dynamic sequential images were pe rformed with continuous acquisition. Time-activity curves were generated. FINDINGS: Hepatic Kinetics: There is prompt uptake of radiotracer in the liver. No focal defects are seen. T here is normal rate of washout from the hepatic parenchyma. Biliary Clearance: Activity is first seen in the extrahepatic biliary system at 14 minutes. There i s normal excretion into the small bowel. Gallbladder: No significant activity is seen within the gallbladder. Biliary-Enteric Reflux: None observed. CONCLUSION: 1. Nonfilling of the gallbladder and of concern for cholecystitis/cystic duct obstruction in the pro per clinical setting. 2. Patent common bile duct. The stone seen on the ultrasound may have passed or migrated proximally into the cystic duct. If it remains within the common bile duct is apparently not obstructed. Electronically signed by: Petar Zambrano MD 06/15/2018 6:18 PM EST
--- NOTE | 2018-06-15 19:49 | P.PNNEU ---
Subjective Subjective Comments: no new c/o , no recurrent sz. Active Medications: Active Medications Al Hydroxide/Mg Hydroxide (Milk Of Magnesia Liq) 30 ml PO Q12H PRN PRN Reason: Mild Constipation Amantadine HCl (Symmetrel) 100 mg PO BID [facility] Last Admin: 06/15/18 10:05 Dose: 100 mg Aspirin (Aspirin Chew) 81 mg PO DAILY [facility] Last Admin: 06/15/18 10:06 Dose: 81 mg Bisacodyl (Dulcolax Supp) 10 mg RECTAL DAILY PRN PRN Reason: SEVERE CONSITIPATION Fenofibrate (Tricor) 145 mg PO DAILY [facility] Last Admin: 06/15/18 10:05 Dose: 145 mg Ferrous Sulfate (Ferosul) 325 mg PO TID [facility] Last Admin: 06/15/18 18:22 Dose: 325 mg Potassium Chloride/Dextrose/Sod Cl (D5w/1/2ns + Kcl 10 Meq Inj) 1,000 mls @ 100 mls/hr IV.CONT .Q10H [facility] Last Admin: 06/15/18 19:45 Dose: Not Given Levetiracetam (Keppra 1000 Mg/100 Ml Premix) 100 mls @ 400 mls/hr IV.SIG Q8HR [facility] Last Infusion: 06/15/18 14:08 Dose: Infused Metronidazole/Sodium Chloride (Flagyl 500 Mg Inj) 100 mls @ 100 mls/hr IV.SIG Q6H [facility] Last Infusion: 06/15/18 19:45 Dose: Infused Lactulose (Lactulose Liq) 30 ml PO DAILY PRN PRN Reason: SEVERE CONSITIPATION Levofloxacin (Levaquin) 750 mg PO DAILY [facility] Last Admin: 06/15/18 10:05 Dose: 750 mg Lorazepam (Ativan Inj) 1 mg IV.PUSH ONCE PRN PRN Reason: SEIZURES Last Admin: 06/14/18 18:28 Dose: 1 mg Lorazepam (Ativan) 0.5 mg PO Q8HR [facility] Last Admin: 06/15/18 13:20 Dose: 0.5 mg Ondansetron HCl (Zofran Inj) 4 mg IV.PUSH Q6H PRN PRN Reason: NAUSEA OR VOMITING Last Admin: 06/14/18 14:56 Dose: 4 mg Phenytoin Sodium (Dilantin Inj) 100 mg IV.PUSH Q6HR [facility] Last Admin: 06/15/18 18:22 Dose: 100 mg Quetiapine Fumarate (Seroquel) 100 mg PO HS [facility] Last Admin: 06/14/18 21:02 Dose: 100 mg Sennosides (Senokot) 17.2 mg PO Q12H PRN PRN Reason: Moderate Constipation Sodium Chloride (Ns Flush) 2 ml IV.FLUSH BID [facility] Last Admin: 06/15/18 10:06 Dose: 2 ml Sodium Chloride (Ns Flush) 2 ml IV.FLUSH PRN PRN PRN Reason: FLUSH AFTER USING IV ACCESS Allergies/Adverse Reactions: Allergies Allergy/AdvReac Type Severity Reaction Status Date / Time ipratropium Allergy Severe unknown Verified 06/14/18 11:39 penicillin G Allergy Severe unknown Verified 06/14/18 11:39 Physical Exam Vital signs: Vital Signs 06/14/18 20:00 06/15/18 04:00 06/15/18 07:00 Temperature 98.7 F 98.5 F Pulse Rate 78 65 Respiratory Rate 19 17 Blood Pressure 126/69 113/68 Pulse Oximetry 98 98 96 06/15/18 07:18 06/15/18 08:00 06/15/18 12:27 Temperature 98.3 F 98.6 F Pulse Rate 72 70 Respiratory Rate 18 20 Blood Pressure 107/63 97/59 L Pulse Oximetry 98 96 97 06/15/18 19:40 Temperature 98.5 F Pulse Rate 62 Respiratory Rate 19 Blood Pressure 135/78 Pulse Oximetry 99 Intake & Output 06/15/18 06/15/18 06/16/18 06:59 18:59 06:59 Intake Total 1400 / 1400 680 / 680 100 / 100 Balance 1400 / 1400 680 / 680 100 / 100 Weight 57.2 kg Intake: IV 1400 / 1400 200 / 200 100 / 100 D5W/1/2NS + KCL 10 mEq Inj 1, 1000 / 1000 000 ML @ 100 mls/hr IV.CONT . Q10H [facility] Rx#:[id number] Keppra 1000 mg/100 mL Premix 200 / 200 100 / 100 100 ML @ 400 mls/hr IV.SIG Q8HR [facility] Rx#:[id number] Flagyl 500 MG Inj 100 ML @ 100 200 / 200 100 / 100 100 / 100 mls/hr IV.SIG Q6H [facility] Rx#: [id number] Oral 480 / 480 Other: # Incontinent Voids 2 - Routine Neurological Exam alert, oriented. speech normal CN intact MOTOR no focal deficit Objective Laboratory Results - last 24 hr 06/14/18 06/15/18 06/15/18 10:28 06:00 06:10 WBC 8.7 RBC 3.72 L Hgb 11.9 L D Hct 34.3 L MCV 92.2 MCH 31.9 MCHC 34.6 RDW 14.3 Plt Count 455 H MPV 7.4 Neut % (Auto) 70.2 H Lymph % (Auto) 19.6 [place] % (Auto) 9.9 H Eos % (Auto) 0.1 Baso % (Auto) 0.2 Neut # (Auto) 6.1 Lymph # (Auto) 1.7 [place] # (Auto) 0.9 Eos # (Auto) 0.0 Baso # (Auto) 0.0 WBC Differential . Differential Comment Auto diff final Urine Color Yellow Urine Clarity Turbid H Urine pH 6.0 Ur Specific [place] 1.015 Urine Protein 100 H Urine Glucose (UA) Negative Urine Ketones Negative Urine Occult Blood Small H Urine Nitrate Negative Urine Bilirubin Negative Urine Urobilinogen Less than 2 Ur Leukocyte Esterase Large H Urine RBC 8 H Urine WBC Urine WBC Clumps Many H Urine Bacteria Many H Hyaline Casts 15 Urine Mucus Few H Micro UA Comment Cath-culture ind Urine Culture Comments Cath-cult indicated Phenytoin 15.8 Microbiology 06/14/18 10:28 Urine Culture - Preliminary Clean Catch Urine gram negative rods Review/Management - Diagnosis (1) Seizure Code(s): R56.9 - Unspecified convulsions Status: Acute Current Visit: Yes - Review/Management Plan: continue current dose phenytoin as level is therapeutic today
[2018-06-15 22:04] LABS: Calcium 8.7 mg/dL (8.5-10.1); Carbon Dioxide 27.5 meq/L (21.0-32.0); Potassium 3.2 meq/L (3.5-5.1)
[2018-06-15] MEDS: QUEtiapine 100 MG Tablet PO SCH (22:10)
[2018-06-16] MEDS: KCL 10 mEq/D5W/NaCl 0.45% Inj 1,000 ML IV.CONT SCH ×2 (01:06→11:43)
[2018-06-16] MEDS: LORazepam 0.5 MG Tablet PO SCH ×2 (05:45→14:03)
[2018-06-16] MEDS: levETIRAcetam 1000mg/100mL Inj 100 ML IV.SIG SCH ×2 (06:39→14:04)
[2018-06-16 07:23] LABS: Calcium 8.8 mg/dL (8.5-10.1); Carbon Dioxide 25.2 meq/L (21.0-32.0); Potassium 3.2 meq/L (3.5-5.1)
[2018-06-16] MEDS ORDERED: Lidocaine PF 1% Inj 5 ML Syringe INFILTRATN ONE (08:45)
[2018-06-16] MEDS ORDERED: Succinylcholine Inj 100 MG/5 ML Syringe IV.PUSH ONE (08:45)
[2018-06-16] MEDS: Fenofibrate 145 MG Tablet PO SCH (11:44)
[2018-06-16] MEDS: Amantadine 100 MG Capsule PO SCH ×2 (11:44→20:44)
[2018-06-16] MEDS: Sodium Chloride 0.9% 2 ML Flush BID IV.FLUSH SCH (11:44)
--- NOTE | 2018-06-16 11:44 | P.PCN ---
Date of procedure: 06/16/18 Pre-op diagnosis: Choledocholithiasis Post-op diagnosis: same Procedure: PROCEDURE PERFORMED ERCP with sphincterotomy and balloon extraction PROCEDURE: The procedure, risks and benefits were discussed with Patient/POA and informed consent was obtained. Anesthesia sedated Patient with Diprivan he underwent general anesthesia. Patient was placed in the prone position. ERCP: Patient was placed in a prone position. The Pentax videoscope was introduced through the oropharynx and advanced to the second portion of the duodenum where the ampula was identified. FINDINGS: The ampulla appeared to be unremarkable and within normal limits we were able to obtain easy cannulation of the common bile duct this appeared to be mildly dilated with multiple filling defects a generous sphincterotomy was performed then using a 12 mm balloon we were able to extract multiple stones there were at least 12-15 stones that were removed thereafter we were able to obtain an obstructive cholangiogram which was unremarkable the intrahepatics were normal ESTIMATED BLOOD LOSS: None SPECIMENS REMOVED: None COMPLICATIONS: None IMPRESSION: Choledocholithiasis PLAN: Proceed with cholecystectomy Continue supportive care Anesthesia: CESIAA Surgeon: Nilay Brooks Condition: stable Disposition: floor
[2018-06-16] MEDS: Ferrous Sulfate 325 MG Tablet PO SCH ×3 (11:45→18:06)
[2018-06-16] MEDS: levoFLOXacin 750 MG Tablet PO SCH (11:45)
--- NOTE | 2018-06-16 11:51 | P.PNIM ---
Subjective Interval history: patient reports feeling ok.returned from procedure this morning, says they removed some stones. Physical Exam Vital signs: Last Vital Signs Temp 98.4 F 06/16/18 10:00 Pulse 65 06/16/18 10:00 Resp 16 06/16/18 10:00 BP 149/96 H 06/16/18 10:00 Pulse Ox 96 06/16/18 10:00 Intake & Output 06/14/18 06/15/18 06/16/18 06/17/18 06:59 06:59 06:59 06:59 Intake Total 2612 / 2612 2320 / 2320 100 / 100 Output Total 100 / 100 Balance 2612 / 2612 2320 / 2320 0 / 0 Weight 57.2 kg 57.2 kg Narrative: GENERAL:not in acute distress, appears older than stated age. HEENT-not pale,anicteric CVS-s1s2 normal, no murmurs CHEST-CTAB ABDOMEN:not distended, soft, non tender, normoactive bowel sounds, no palpable masses or organomegaly EXT-no pedal edema Neuro: awake,alert, speech appropriate, moves all extremities Results Labs CBC & Chem 7: 06/15/18 06:00 06/16/18 06:34 Labs: Microbiology 06/14/18 10:28 Clean Catch Urine Urine Culture - Final Escherichia coli ESBL positive Imaging Imaging: Impressions Hepatobiliary Scan Nuclear Medicine 06/15/18 00:00 CONCLUSION: 1. Nonfilling of the gallbladder and of concern for cholecystitis/cystic duct obstruction in the proper clinical setting. 2. Patent common bile duct. The stone seen on the ultrasound may have passed or migrated proximally into the cystic duct. If it remains within the common bile duct is apparently not obstructed. Assessment and Plan (1) Seizure: Code(s): R56.9 - Unspecified convulsions Status: Acute Plan 53 yo admitted because of suspected seizure, vomiting, was also noted to have abdominal pain and vomiting on admission. 1.Seizures- MRI brain did not show any acute findings. Phenytoin level wnl. Keppra 1000mg tid, continued Dilantin 100mg tid appreciate neurology input. 2.Abdominal pain/vomiting on admission: now resolved. Ultrasound ordered on admission reported on admission showed choledocholithiasis and mild gall bladder thickening with trace pericholecystic fluid concerning for early cholecystitis.abdomen was benign on exam. HIDA scan report noted as above with non filling of gall bladder. ERCP with sphincterectomy done on 06/16, stones extracted. Cholecystectomy recommended. 3.Incidental findings of 10mm non obstructing rt stone, and moderate to severe left side hydronephrosis of unclear etiology. possibility of calculi as an etiology given rt renal calculi,may also have left sided. order CT abdo/pelvis wo contrast to further evaluate. 4. Hypokalemia--replete, repeat BMP this afternoon to re-evaluate. 5. Acute kidney injury- likely prerenal in the setting of vomiting prior to admission. Also has moderate to severe hydronephrosis left kidney of unclear etiology. concern whether this could be related given h/o rt calculi. FRANCHESKA has resolved. strict i/o charting. -mild metabolic acidosis likely in the setting of FRANCHESKA. -Hypokalemia--replete orally with 40meq potassium daily. 6. Mildly elevated glucose-prediabetic range, can follow up as outpatient. 7. Bacteriuria--patient had been on Levofloxacin for suspected UTI, urine culture grew ESBL resistant to quinolone, given clinical improvement, it is doubtful that he had a UTI. The ESBL is likely a colonizer at this time. Discontinued Ceftriaxone. Progress Note: Quality VTE Deep Vein Thrombosis/Pulmonary Embolism Present on Admission: No
--- NOTE | 2018-06-16 12:59 | FL ---
EXAM DATE: 06/16/2018 12:25 PM EST AGE/SEX: 53 years / Male INDICATIONS: Obstruction, stone removal. CLINICAL DATA: This is the patient's initial encounter. Patient reports that signs and symptoms have been present for 1 day and indicates a pain score of Nonresponsive. MEDICAL/SURGICAL HISTORY: Hypertension. Seizures. Cholelithiasis. None. COMPARISON: No prior exams available for comparison. FINDINGS: An ERCP was performed by the ordering physician. The images demonstrate numerous filling defects wit hin the common bile duct. Common bile duct is mildly distended. There is no filling of the gallbladde r. CONCLUSION: Common bile duct filling defects Mild distention of the common bile duct. Electronically signed by: Andrzej Kelsey MD 06/16/2018 12:58 PM EST
[2018-06-16] MEDS ORDERED: Iohexol 350 MG/ML 50 ML Vial (for Rad Diag) PO ONE (16:08)
--- NOTE | 2018-06-16 16:41 | P.PNGS ---
Subjective Interval history: Resting in bed No pain in RUQ Physical Exam Vital signs: Vital Signs 06/15/18 19:40 06/15/18 23:19 06/16/18 04:00 Temperature 98.5 F 98.6 F 98.2 F Pulse Rate 62 62 68 Respiratory Rate 19 18 18 Blood Pressure 135/78 121/68 123/80 Pulse Oximetry 99 96 96 06/16/18 09:22 06/16/18 09:45 06/16/18 10:00 Temperature 98.0 F 98.4 F Pulse Rate 58 L 67 65 Respiratory Rate 17 18 16 Blood Pressure 169/90 H 148/88 H 149/96 H Pulse Oximetry 96 96 96 Intake & Output 06/15/18 06/16/18 06/16/18 18:59 06:59 18:59 Intake Total 1680 / 1680 640 / 640 800 / 800 Output Total 100 / 100 Balance 1680 / 1680 640 / 640 700 / 700 Weight 57.2 kg Intake: IV 1200 / 1200 400 / 400 300 / 300 D5W/1/2NS + KCL 10 mEq Inj 1, 1000 / 1000 000 ML @ 100 mls/hr IV.CONT . Q10H RASHEED Rx#:[id number] Keppra 1000 mg/100 mL Premix 100 / 100 100 / 100 200 / 200 100 ML @ 400 mls/hr IV.SIG Q8HR RASHEED Rx#:[id number] Flagyl 500 MG Inj 100 ML @ 100 100 / 100 300 / 300 100 / 100 mls/hr IV.SIG Q6H RASHEED Rx#: [id number] Oral 480 / 480 240 / 240 Anesthesia Amount 500 / 500 Output: Urine 100 / 100 Other: # Voids 3 # Incontinent Voids 2 Narrative: Alert and awake Abd: soft; non tender non distended Results - Labs 06/17/18 06:38 06/17/18 06:38 Laboratory Results - last 24 hr 06/15/18 06/16/18 20:46 06:34 Sodium 142 142 Potassium 3.2 L 3.2 L Chloride 107 107 Carbon Dioxide 27.5 D 25.2 Anion Gap 8 10 BUN 10 9 Creatinine 0.98 1.02 Estimated GFR 79 L 76 L Random Glucose 92 85 Calcium 8.7 D 8.8 - Imaging Imaging: ITS Impressions Abdomen Ultrasound 06/14/18 00:00 CONCLUSION: 1. Choledocholithiasis with 6 mm common bile duct stone and mild extrahepatic biliary ductal dilatation. 2. Mild gallbladder wall thickening with very trace pericholecystic fluid concerning for early acute cholecystitis. 3. Moderate to severe left-sided hydronephrosis with etiology unclear. 4. 10 mm nonobstructing calyceal calculus in the right kidney. 5. Echogenic kidneys bilaterally consistent with medical renal disease. Head CT 06/14/18 11:15 CONCLUSION: 1. No acute intracranial abnormality. . Hepatobiliary Scan Nuclear Medicine 06/15/18 00:00 CONCLUSION: 1. Nonfilling of the gallbladder and of concern for cholecystitis/cystic duct obstruction in the proper clinical setting. 2. Patent common bile duct. The stone seen on the ultrasound may have passed or migrated proximally into the cystic duct. If it remains within the common bile duct is apparently not obstructed. Head MRI 06/15/18 07:03 CONCLUSION: Unremarkable study. GI Procedure 06/16/18 00:00 CONCLUSION: Common bile duct filling defects Mild distention of the common bile duct. Assessment and Plan - Assessment (1) Choledocholithiasis Code(s): K80.50 - Calculus of bile duct without cholangitis or cholecystitis without obstruction Status: Acute Plan: 53 year old male with complex medical history including CVA, HTN; with choledocholithiasis -s/p ERCP -Abdominal exam benign -Had discussion with Dad (Nguyen and gary on the phone--- I explained that the usual course of action is to do a laparoscopic cholecystectomy but since the patient's exam is benign and due to the patient's complex medical history that patient would have little benefit from surgery. They agree as well as the patient. -Advance diet as tolerated -General Surgery will sign off; Please call with questions. - Attending Attestation The exam, history, and the medical decision-making described in the above note were completed with the assistance of the mid-level provider. I reviewed and agree with the findings presented. I attest that I had a [id number] encounter with the patient on the same day, and personally performed and documented my assessment and findings in the medical record. Patient s/p ERCP for CBD stones, stable, denies pain Abdominal exam soft, nontender, non-surgical Recommend continue non-operative management, patient with poor insight and high risk for complications d/w family, they do not want surgery at this time, will treat expectantly, will sign off
[2018-06-16] MEDS: QUEtiapine 100 MG Tablet PO SCH (20:44)
[2018-06-17] MEDS: levETIRAcetam 1000mg/100mL Inj 100 ML IV.SIG SCH ×3 (00:27→14:07)
[2018-06-17] MEDS: LORazepam 0.5 MG Tablet PO SCH ×3 (00:28→14:06)
[2018-06-17] MEDS: Sodium Chloride 0.9% 2 ML Flush BID IV.FLUSH SCH ×2 (02:39→08:41)
[2018-06-17] MEDS: KCL 10 mEq/D5W/NaCl 0.45% Inj 1,000 ML IV.CONT SCH ×3 (03:33→12:30)
[2018-06-17 04:57] VITALS: BP 135/75; PULSE 66; RESP 18; TEMP 98.2; O2SAT 98
[2018-06-17 07:28] LABS: Hematocrit 40.6 % (39.0-51.0); Mean Corpuscular HGB Conc 34.4 % (32.0-36.0); Mean Corpuscular Hemoglobin 32.5 pg (27.0-34.0); Mean Corpuscular Volume 94.5 fL (80.0-100.0); Mean Platelet Volume 7.4 fL (7.0-11.0); Platelet Count 453 th/mm3 (150-450); Red Cell Distribution Width 14.4 % (11.6-17.2); White Blood Count 7.8 th/mm3 (4.0-11.0)
--- NOTE | 2018-06-17 07:43 | P.DS ---
DS: Providers Date of admission: 06/14/18 13:11 Primary care physician: UNKNOWN Consults: 06/14/18 14:19 Consult to Neurology Routine Consulting Provider: Ervin Bueno Reason for Consultation: Possible breakthrough seizure, encephalopathy Notified:: Office Spoke with:: PAUL Date Notified:: 06/14/18 Time Notified:: 14:25 Ordering Provider: LUIS 06/14/18 15:39 HUB Only Consult Order Routine Consulting Provider: [facility] 06/14/18 21:17 Consult to Gastroenterology Routine Consulting Provider: Karyn Stallworth Reason for Consultation: Choledocholithiasis with 6 mm common bile duct stone and mild extra hepatic biliary ductal dilatation. Notified:: Service Spoke with:: Kim Date Notified:: 06/14/18 Time Notified:: 21:39 Ordering Provider: KATIE Consult to General Surgery Routine Consulting Provider: Demarco Pineda Reason for Consultation: Mild gallbladder wall thickening with very trace pericholecystic fluid concerning for early acute cholecystitis Notified:: Service Spoke with:: Kim Date Notified:: 06/14/18 Time Notified:: 21:33 Ordering Provider: KATIE DS: Diagnosis Discharge Diagnosis (1) Seizure: Status: Acute Problem details: break through seizure, patient was seen by the neurologist, recommended MRI brain which did not show any acute findings. Phenytoin level wnl. Keppra adjusted to 1000mg tid, continued Dilantin 100mg tid. (2) Choledocholithiasis: Status: Acute Problem details: Abdominal pain/vomiting on admission: now resolved. Ultrasound ordered on admission reported showed choledocholithiasis and mild gall bladder thickening with trace pericholecystic fluid concerning for early cholecystitis.abdomen was benign on exam. GI and surgery consulted. HIDA scan reported as non filling of gall bladder. ERCP with sphincterectomy done by GI on 06/16, stones extracted. General surgery after discussion with patient's father deferred cholecystectomy since patients abdominal exam was benign. (3) Acute kidney injury: Status: Acute Problem details: Acute kidney injury- likely prerenal in the setting of vomiting prior to admission. Now resolved with hydration.He has rt side non obstructing renal stones which are unlikely to have contributed to FRANCHESKA. 6. Mildly elevated glucose-prediabetic range, can follow up as outpatient. 7. Bacteriuria--patient had been on Levofloxacin for suspected UTI, urine culture grew ESBL resistant to quinolone, given clinical improvement, it is doubtful that he had a UTI. The ESBL is likely a colonizer at this time. Discontinued Ceftriaxone. (4) Hydronephrosis: Status: Acute Problem details: moderate to severe left side hydronephrosis,CT abdo/pelvis wo contrast showed a lt ureteral stone, urology consult evaluated patient and recommended out patient follow up. (5) Nephrolithiasis: Status: Acute Problem details: Incidental findings of 10 mm non obstructing rt stone and lt ureteral stone. will need to follow up with outpatient urology. DS: Summary 1) Seizure: Status: Acute Problem details: break through seizure, patient was seen by the neurologist, recommended MRI brain which did not show any acute findings. Phenytoin level wnl. Keppra adjusted to 1000mg tid, continued Dilantin 100mg tid. (2) Choledocholithiasis: Status: Acute Problem details: Abdominal pain/vomiting on admission: now resolved. Ultrasound ordered on admission reported showed choledocholithiasis and mild gall bladder thickening with trace pericholecystic fluid concerning for early cholecystitis.abdomen was benign on exam. GI and surgery consulted. HIDA scan reported as non filling of gall bladder. ERCP with sphincterectomy done by GI on 06/16, stones extracted. General surgery after discussion with patient's father deferred cholecystectomy since patients abdominal exam was benign. (3) Acute kidney injury: Status: Acute Problem details: Acute kidney injury- likely prerenal in the setting of vomiting prior to admission. Now resolved with hydration.He has rt side non obstructing renal stones which are unlikely to have contributed to FRANCHESKA. (4) Hydronephrosis: Status: Acute Problem details: moderate to severe left side hydronephrosis,CT abdo/pelvis wo contrast showed a lt ureteral stone, urology consult evaluated patient and recommended out patient follow up. (5) Nephrolithiasis: Status: Acute Problem details: Incidental findings of 10 mm non obstructing rt stone and lt ureteral stone. will need to follow up with outpatient urology. 6. Mildly elevated glucose-prediabetic range, can follow up as outpatient. 7. Bacteriuria--patient had been on Levofloxacin for suspected UTI initially on admission, urine culture grew ESBL resistant to quinolone, given clinical improvement, it is doubtful that he had a UTI. The ESBL is likely a colonizer at this time. Discontinued antibiotic. Time Spent with Patient Total time spent providing and/or coordinating discharge services:35minutes Quality: VTE Deep Vein Thrombosis/Pulmonary Embolism Present on Admission: No Exam Narrative Exam Narrative: Narrative: GENERAL:not in acute distress, appears older than stated age. HEENT-not pale,anicteric CVS-s1s2 normal, no murmurs CHEST-CTAB ABDOMEN:not distended, soft, non tender, normoactive bowel sounds, no palpable masses or organomegaly EXT-no pedal edema Neuro: awake,alert, speech appropriate, moves all extremities DS: Data Labs on day of discharge: Labs from last 24 hours 06/17/18 06/17/18 06:38 06:38 WBC 7.8 RBC 4.30 L Hgb 14.0 Hct 40.6 MCV 94.5 MCH 32.5 MCHC 34.4 RDW 14.4 Plt Count 453 H MPV 7.4 Sodium Pending Potassium Pending Chloride Pending Carbon Dioxide Pending Anion Gap Pending BUN Pending Creatinine Pending Random Glucose Pending Calcium Pending Total Bilirubin Pending AST Pending ALT Pending Alkaline Phosphatase Pending Total Protein Pending Albumin Pending Impressions Abdomen Ultrasound 06/14/18 00:00 CONCLUSION: 1. Choledocholithiasis with 6 mm common bile duct stone and mild extrahepatic biliary ductal dilatation. 2. Mild gallbladder wall thickening with very trace pericholecystic fluid concerning for early acute cholecystitis. 3. Moderate to severe left-sided hydronephrosis with etiology unclear. 4. 10 mm nonobstructing calyceal calculus in the right kidney. 5. Echogenic kidneys bilaterally consistent with medical renal disease. Head CT 06/14/18 11:15 CONCLUSION: 1. No acute intracranial abnormality. . Hepatobiliary Scan Nuclear Medicine 06/15/18 00:00 CONCLUSION: 1. Nonfilling of the gallbladder and of concern for cholecystitis/cystic duct obstruction in the proper clinical setting. 2. Patent common bile duct. The stone seen on the ultrasound may have passed or migrated proximally into the cystic duct. If it remains within the common bile duct is apparently not obstructed. Head MRI 06/15/18 07:03 CONCLUSION: Unremarkable study. GI Procedure 06/16/18 00:00 CONCLUSION: Common bile duct filling defects Mild distention of the common bile duct. Discharge Plan Discharge Disposition Patient Disposition: 03 Discharge to SNF Discharge Order Discharge Orders: Discharge Order (Routine); Ordered 06/17/18 Ordered By: Jaymie Olivares Discharge Details Anticipated Discharge Date: 06/17/18 Physicians Team Primary Care Provider: UNKNOWN, Attending Provider: Ernie Bates Other Providers: Ervin Bueno ; [facility] ; Karyn Stallworth ; Demarco Pineda ; Zeferino Dial Rxs /Orders / Referrals /Forms Prescriptions: Continue phenytoin sodium extended [Dilantin Extended] 100 mg Capsule 100 mg PO TID RF: 0 quetiapine 100 mg Tablet 100 mg PO HS RF: 0 amantadine HCl 100 mg Capsule 100 mg PO BID RF: 0 lorazepam 0.5 mg Tablet 0.5 mg PO Q8H RF: 0 ferrous sulfate 325 mg (65 mg iron) Tablet 325 mg PO TID RF: 0 aspirin 81 mg Tablet,Chewable 81 mg PO DAILY RF: 0 fenofibrate 160 mg Tablet 160 mg PO DAILY RF: 0 levetiracetam [Keppra] 1,000 mg Tablet 1,000 mg PO TID RF: 0 Referrals: UNKNOWN, [Primary Care Provider] - See Instructions (Will need a follow up appointment with a urologist within 1-2 weeks to evaluate hydronephrosis and renal stones. ) Discharge Instructions Patient Printed Instructions: ERCP (Endoscopic Retrograde Cholangiopancreatography) (DC), Recurrent Seizures in Adults (DC) Status ED Status: Left Department
[2018-06-17 08:21] LABS: Alanine Aminotransferase 23 U/L (12-78); Albumin 3.3 g/dL (3.4-5.0); Alkaline Phosphatase 81 U/L (45-117); Anion Gap 8 meq/L (5-15); Aspartate Aminotransferase 29 U/L (15-37); Blood Urea Nitrogen 7 mg/dL (7-18); Carbon Dioxide 26.9 meq/L (21.0-32.0); Chloride 107 meq/L (98-107); Glomerular Filtration Rate Greater Than 89 mL/min (>89); Glucose,Random 109 mg/dL (74-106); Potassium 3.3 meq/L (3.5-5.1); Sodium 142 meq/L (136-145); Total Protein 7.5 g/dL (6.4-8.2)
[2018-06-17] MEDS: Fenofibrate 145 MG Tablet PO SCH (08:40)
[2018-06-17] MEDS: Amantadine 100 MG Capsule PO SCH (08:40)
[2018-06-17] MEDS: Ferrous Sulfate 325 MG Tablet PO SCH ×3 (08:41→17:07)
--- NOTE | 2018-06-17 12:22 | P.PNGI ---
Subjective Interval history: Patient resting quietly in bed Denies abdominal pain or nausea vomiting Patient post ERCP and sphincterotomy <Zoë Peralta - Last Filed: 06/17/18 12:15> Physical Exam Vital signs: Vital Signs 06/16/18 16:49 06/16/18 20:00 06/17/18 04:00 Temperature 98.7 F 98.0 F 98.2 F Pulse Rate 75 63 66 Respiratory Rate 20 17 18 Blood Pressure 142/91 H 119/75 135/75 Pulse Oximetry 98 97 98 Intake & Output 06/16/18 06/17/18 06/17/18 18:59 06:59 18:59 Intake Total 2307 / 2307 300 / 300 100 / 100 Output Total 100 / 100 Balance 2207 / 2207 300 / 300 100 / 100 Intake: IV 607 / 607 300 / 300 100 / 100 D5W/1/2NS + KCL 10 mEq Inj 1, 307 / 307 000 ML @ 100 mls/hr IV.CONT . Q10H RASHEED Rx#:[id number] Keppra 1000 mg/100 mL Premix 200 / 200 100 / 100 100 / 100 100 ML @ 400 mls/hr IV.SIG Q8HR RASHEED Rx#:[id number] Flagyl 500 MG Inj 100 ML @ 100 100 / 100 200 / 200 mls/hr IV.SIG Q6H RASHEED Rx#: [id number] Oral 1200 / 1200 Anesthesia Amount 500 / 500 Output: Urine 100 / 100 Other: # Voids 2 # Incontinent Voids 1 - Constitutional no acute distress - Routine HEENT Exam Head: Present: normocephalic - Routine Respiratory Exam Present: CTA bilaterally. Absent: accessory muscle use - Routine Abdominal Exam Present: soft, normoactive bowel sounds. Absent: tenderness, distended, guarding, firm - Routine Skin Exam Present: dry, warm - Routine Neurological Exam Present: alert - Routine Psychiatric Exam Present: cooperative <Zoë Peralta - Last Filed: 06/17/18 12:15> Vital signs: Vital Signs 06/17/18 04:00 Temperature 98.2 F Pulse Rate 66 Respiratory Rate 18 Blood Pressure 135/75 Pulse Oximetry 98 Intake & Output 06/17/18 06/17/18 06/18/18 06:59 18:59 06:59 Intake Total 300 / 300 1400 / 1400 Balance 300 / 300 1400 / 1400 Intake: IV 300 / 300 1400 / 1400 D5W/1/2NS + KCL 10 mEq Inj 1, 1000 / 1000 000 ML @ 100 mls/hr IV.CONT . Q10H RASHEED Rx#:[id number] Keppra 1000 mg/100 mL Premix 100 / 100 200 / 200 100 ML @ 400 mls/hr IV.SIG Q8HR RASHEED Rx#:[id number] Flagyl 500 MG Inj 100 ML @ 100 200 / 200 200 / 200 mls/hr IV.SIG Q6H RASHEED Rx#: [id number] <Karyn Stallworth - Last Filed: 06/17/18 21:54> Results - Labs CBC & Chem 7: 06/17/18 06:38 06/17/18 06:38 Laboratory Results - last 24 hr 06/17/18 06/17/18 06:38 06:38 WBC 7.8 RBC 4.30 L Hgb 14.0 Hct 40.6 MCV 94.5 MCH 32.5 MCHC 34.4 RDW 14.4 Plt Count 453 H MPV 7.4 Sodium 142 Potassium 3.3 L Chloride 107 Carbon Dioxide 26.9 Anion Gap 8 BUN 7 Creatinine 0.88 Estimated GFR Greater than 89 Random Glucose 109 H Calcium 9.0 Total Bilirubin 0.4 AST 29 ALT 23 Alkaline Phosphatase 81 Total Protein 7.5 D Albumin 3.3 L Microbiology 06/14/18 10:28 Clean Catch Urine Urine Culture - Final Escherichia coli ESBL positive - Imaging Impressions GI Procedure 06/16/18 00:00 CONCLUSION: Common bile duct filling defects Mild distention of the common bile duct. <Zoë Peralta - Last Filed: 06/17/18 12:15> - Labs CBC & Chem 7: 06/17/18 06:38 06/17/18 06:38 Laboratory Results - last 24 hr 06/17/18 06/17/18 06:38 06:38 WBC 7.8 RBC 4.30 L Hgb 14.0 Hct 40.6 MCV 94.5 MCH 32.5 MCHC 34.4 RDW 14.4 Plt Count 453 H MPV 7.4 Sodium 142 Potassium 3.3 L Chloride 107 Carbon Dioxide 26.9 Anion Gap 8 BUN 7 Creatinine 0.88 Estimated GFR Greater than 89 Random Glucose 109 H Calcium 9.0 Total Bilirubin 0.4 AST 29 ALT 23 Alkaline Phosphatase 81 Total Protein 7.5 D Albumin 3.3 L - Imaging Impressions Abdomen/Pelvis CT 06/17/18 00:00 CONCLUSION: 1. Significant hydronephrosis left kidney due to a large left proximal ureteral stone. 2. Gallbladder with stones. 3. Tiny right renal stone nonobstructing. <Karyn Stallworth - Last Filed: 06/17/18 21:54> Assessment and Plan (1) Choledocholithiasis Status: Acute Code(s): K80.50 - Calculus of bile duct without cholangitis or cholecystitis without obstruction - Plan This patient is a 53-year-old male patient who was sent to the emergency room on 06/14/2018 [facility]. Patient had a complaint of nausea and vomiting with altered mental status. This patient has a medical history significant for seizure activity, anemia, ataxia, CVA, constipation, depression, hypertension and hyperlipidemia. Surgical history not known. Patient denies any use of tobacco or alcohol products. Upon admission, abdominal ultrasound revealed choledocholithiasis with 6 mm common bile duct stone. Our service has been consulted to evaluate patient further for abdominal ultrasound findings. Choledocholithiasis- admitted to [facility] on 06/14/2018 with report of nausea and vomiting. Abdominal ultrasound revealed the following findings: 1. Choledocholithiasis with 6 mm common bile duct stone and mild extrahepatic biliary ductal dilatation. 2. Mild gallbladder wall thickening with very trace pericholecystic fluid concerning for early acute cholecystitis. 3. Moderate to severe left-sided hydronephrosis with etiology unclear. 4. 10 mm nonobstructing calyceal calculus in the right kidney. 5. Echogenic kidneys bilaterally consistent with medical renal disease. (06/15/2018)-hemoglobin 11.9 hematocrit 34.3 (06/14/18)- total bilirubin 0.5 AST 26 ALT 24 alk phos 99 lipase 235 06/17/2018 Choledocholithiasis 06/16/2018 ERCP revealed the following findings: The ampulla appeared to be unremarkable and within normal limits we were able to obtain easy cannulation of the common bile duct this appeared to be mildly dilated with multiple filling defects a generous sphincterotomy was performed then using a 12 mm balloon we were able to extract multiple stones there were at least 12-15 stones that were removed thereafter we were able to obtain an obstructive cholangiogram which was unremarkable the intrahepatics were normal. Plan -Diet as tolerated -Per general surgery, exam benign; no plan for laparoscopic cholecystectomy at this time -Supportive care -Please notify for any additional recommendations This patient has been seen by myself and Dr. Stallworth and this note is written on her behalf - Attending Attestation Dr. Stallworth <Zoë Peralta - Last Filed: 06/17/18 12:15> (1) Choledocholithiasis Status: Acute Code(s): K80.50 - Calculus of bile duct without cholangitis or cholecystitis without obstruction - Attending Attestation seen, examined agree with above gi will sign off if dc fu office <Karyn Stallworth - Last Filed: 06/17/18 21:54>
--- NOTE | 2018-06-17 12:30 | CT ---
EXAM DATE: 06/17/2018 12:19 PM EST AGE/SEX: 53 years / Male INDICATIONS: Hydronephrosis, bacteria in urine. CLINICAL DATA: This is the patient's initial encounter. Patient reports that signs and symptoms have been present for 1 day and indicates a pain score of 2/10. MEDICAL/SURGICAL HISTORY: Cerebrovascular disease. Hyperparathyroidism. Seizures. Anemia. N one. RADIATION DOSE: 6.64 CTDI (mGy) COMPARISON: No prior exams available for comparison. TECHNIQUE: Multiple contiguous axial images were obtained through the abdomen. Images were obtained using multiple row detector helical technique. Using automated exposure control and adjustment of the mA and/or kV according to patient size, radiation dose was kept as low as reasonably achievable to o btain optimal diagnostic quality images. DICOM format image data is available electronically for rev iew and comparison. FINDINGS: Abdomen CT: The spleen, pancreas, adrenals are unremarkable. There is severe hydronephrosis in left kidney due t o an approximate 1 cm stone in the left proximal ureter. There is also a tiny almost 3 to 4 mm stone in the right upper pole kidney. Almost 1 cm left hepatic lobe cyst. There is no evidence for any appr eciable pathological adenopathy, free fluid, or bowel obstruction. Coronary artery calcifications are seen typically seen with coronary artery disease and clinical ralph elation and evaluation is suggested. Gallstones are present within the gallbladder which is packed with stones without signs of cholecysti tis for technique. There are atherosclerotic calcifications involving the aorta and iliac arteries chronic in nature. \ Pelvic CT: There is no evidence for mass, abscess formation, or any significant adenopathy within the pelvis. The prostate gland measures 2.7 x 3.7 cm in AP and transverse diameters inhomogeneous in appearance a nd nonspecific. CONCLUSION: 1. Significant hydronephrosis left kidney due to a large left proximal ureteral stone. 2. Gallbladder with stones. 3. Tiny right renal stone nonobstructing. Electronically signed by: Lise Ruiz MD 06/17/2018 12:29 PM EST
--- NOTE | 2018-06-17 12:53 | P.PNIM ---
Subjective Interval history: patient says he feels well and asking when he will go home. Interval hx- ct abdo/pelvis done--showing significant lt hydronephrosis with a obstructing ureteral stone. Physical Exam Vital signs: Last Vital Signs Temp 98.2 F 06/17/18 04:00 Pulse 66 06/17/18 04:00 Resp 18 06/17/18 04:00 BP 135/75 06/17/18 04:00 Pulse Ox 98 06/17/18 04:00 Intake & Output 06/15/18 06/16/18 06/17/18 06/18/18 06:59 06:59 06:59 06:59 Intake Total 2612 / 2612 2320 / 2320 2607 / 2607 1200 / 1200 Output Total 100 / 100 Balance 2612 / 2612 2320 / 2320 2507 / 2507 1200 / 1200 Weight 57.2 kg 57.2 kg Results Labs CBC & Chem 7: 06/17/18 06:38 06/17/18 06:38 Labs: Microbiology 06/14/18 10:28 Clean Catch Urine Urine Culture - Final Escherichia coli ESBL positive Imaging Imaging: Impressions GI Procedure 06/16/18 00:00 CONCLUSION: Common bile duct filling defects Mild distention of the common bile duct. Abdomen/Pelvis CT 06/17/18 00:00 CONCLUSION: 1. Significant hydronephrosis left kidney due to a large left proximal ureteral stone. 2. Gallbladder with stones. 3. Tiny right renal stone nonobstructing. Assessment and Plan (1) Seizure: Code(s): R56.9 - Unspecified convulsions Status: Acute (2) Choledocholithiasis: Code(s): K80.50 - Calculus of bile duct without cholangitis or cholecystitis without obstruction Status: Acute (3) Acute kidney injury: Code(s): N17.9 - Acute kidney failure, unspecified Status: Acute (4) Hydronephrosis: Code(s): N13.30 - Unspecified hydronephrosis Status: Acute (5) Nephrolithiasis: Code(s): N20.0 - Calculus of kidney Status: Acute Plan 53 yo admitted because of suspected seizure, vomiting, was also noted to have abdominal pain and vomiting on admission. 1.Seizures- MRI brain did not show any acute findings. Phenytoin level wnl. Keppra 1000mg tid, continued Dilantin 100mg tid appreciate neurology input. 2.Abdominal pain/vomiting on admission: now resolved. Ultrasound ordered on admission reported on admission showed choledocholithiasis and mild gall bladder thickening with trace pericholecystic fluid concerning for early cholecystitis.abdomen was benign on exam.HIDA scan report noted as above with non filling of gall bladder. ERCP with sphincterectomy done on 06/16, stones extracted. Cholecystectomy recommended. 3.Incidental findings of 10mm non obstructing rt stone, and moderate to severe left side hydronephrosis of unclear etiology. possibility of calculi as an etiology given rt renal calculi,may also have left sided. CT abdo/pelvis wo contrast showing left ureteral stone with significant hydronephrosis. consulted urology for further evaluation recommended outpatient follow up. 4. Hypokalemia--replete, repeat BMP this afternoon to re-evaluate. 5. Acute kidney injury- likely prerenal in the setting of vomiting prior to admission. Also has moderate to severe hydronephrosis left kidney of unclear etiology. concern whether this could be related given h/o rt calculi. FRANCHESKA has resolved. strict i/o charting. -mild metabolic acidosis likely in the setting of FRANCHESKA--resolved. -Hypokalemia--replete orally with 40meq potassium daily. 6. Mildly elevated glucose-prediabetic range, can follow up as outpatient. 7. Bacteriuria--patient had been on Levofloxacin for suspected UTI, urine culture grew ESBL resistant to quinolone, given clinical improvement, it is doubtful that he had a UTI. The ESBL is likely a colonizer at this time. Discontinued Ceftriaxone. Progress Note: Quality VTE Deep Vein Thrombosis/Pulmonary Embolism Present on Admission: No
--- NOTE | 2018-06-17 19:31 | P.CONURO ---
History of Present Illness Service: Consult date: 06/17/18 Requesting Physician: Jaymie Olivares Reason for Consult: Obstructing left ureteral calculus Primary Care Provider: UNKNOWN Chief Complaint: AMS History of Present Illness: 53-year-old gentleman who was recently admitted with suspected seizure, vomiting and abdominal pain. Workup included a CT scan of the abdomen and pelvis that demonstrated a 1 cm left proximal ureteral calculus causing left hydronephrosis. Also noted was a 3-4 mm nonobstructing right upper pole renal calculus. Urology consult was placed regarding these findings. At the time of consultation, the patient reported that he felt fine and was anxious to go home. I discussed with him that I had tentatively scheduled him for left ureteral stent placement tomorrow however he adamantly refused. He said he would prefer to follow-up with me as an outpatient. Review of Systems All other systems reviewed negative except as stated in HPI PMFSH - History History Provided By: Patient - Medical History Medical History: Medical History (Last Updated 06/17/18 @ 07:36 by Sowmya Johnston) Anemia Ataxia CVA (cerebral vascular accident) Constipation Depression HTN (hypertension) Hyperlipemia MDRO (multiple drug resistant organisms) resistance Onset Date: ~06/14/18 Seizure Surgical history unknown - Tobacco History Second Hand Smoke Exposure: No Tobacco Use In Past 30 Days: No Smoking Status: Never smoker - Alcohol History How Often Do You Have a Drink Containing Alcohol: Never - Substance Use History Substance History: No History of Abuse - Travel History Recent Travel in the [place] Within the Last 8 Weeks: No Recent Travel Out of the Country Within the Last 8 Weeks: No - Immunization History Tetanus Immunization: Unable to Assess Medications and Allergies Allergies Allergy/AdvReac Type Severity Reaction Status Date / Time ipratropium Allergy Severe unknown Verified 06/14/18 11:39 penicillin G Allergy Severe unknown Verified 06/14/18 11:39 Home Medications Medication Instructions Recorded Confirmed Type amantadine HCl 100 mg PO BID 06/14/18 06/14/18 History aspirin 81 mg PO DAILY 06/14/18 06/14/18 History fenofibrate 160 mg PO DAILY 06/14/18 06/14/18 History ferrous sulfate 325 mg PO TID 06/14/18 06/14/18 History levetiracetam [Keppra] 1,000 mg PO TID 06/14/18 06/14/18 History lorazepam 0.5 mg PO Q8H 06/14/18 06/14/18 History phenytoin sodium extended 100 mg PO TID 06/14/18 06/14/18 History [Dilantin Extended] quetiapine 100 mg PO HS 06/14/18 06/14/18 History Physical Exam Vital Signs - 24 hr 06/16/18 20:00 06/17/18 04:00 Temperature 98.0 F 98.2 F Pulse Rate 63 66 Respiratory Rate 17 18 Blood Pressure 119/75 135/75 Pulse Oximetry 97 98 Physical Exam: GENERAL: This is a well-nourished, well-developed patient, in no apparent distress. SKIN: No rashes, ecchymoses or lesions. Cool and dry. HEAD: Atraumatic. Normocephalic. No temporal or scalp tenderness. EYES: Pupils equal round and reactive. Extraocular motions intact. No scleral icterus. No injection or drainage. ENT: Nose without bleeding, purulent drainage or septal hematoma. Throat without erythema, tonsillar hypertrophy or exudate. Uvula midline. Airway patent. NECK: Trachea midline. No JVD or lymphadenopathy. Supple, nontender, no meningeal signs. CARDIOVASCULAR: Regular rate and rhythm without murmurs, gallops, or rubs. RESPIRATORY: Clear to auscultation. Breath sounds equal bilaterally. No wheezes , rales, or rhonchi. GASTROINTESTINAL: Abdomen soft, non-tender, nondistended. No hepato-splenomegaly , or palpable masses. No guarding. GENITOURINARY: No CVA tenderness, bladder not distended MUSCULOSKELETAL: Extremities without clubbing, cyanosis, or edema. No joint tenderness, effusion, or edema noted. No calf tenderness. Negative Homans sign bilaterally. NEUROLOGICAL: Awake and alert. Cranial nerves II through XII intact. Motor and sensory grossly within normal limits. Five out of 5 muscle strength in all muscle groups. Normal speech. Laboratory Results - last 24 hr 06/17/18 06/17/18 06:38 06:38 WBC 7.8 RBC 4.30 L Hgb 14.0 Hct 40.6 MCV 94.5 MCH 32.5 MCHC 34.4 RDW 14.4 Plt Count 453 H MPV 7.4 Sodium 142 Potassium 3.3 L Chloride 107 Carbon Dioxide 26.9 Anion Gap 8 BUN 7 Creatinine 0.88 Estimated GFR Greater than 89 Random Glucose 109 H Calcium 9.0 Total Bilirubin 0.4 AST 29 ALT 23 Alkaline Phosphatase 81 Total Protein 7.5 D Albumin 3.3 L Result Diagrams: 06/17/18 06:38 06/17/18 06:38 Imaging: ITS Impressions Abdomen Ultrasound 06/14/18 00:00 CONCLUSION: 1. Choledocholithiasis with 6 mm common bile duct stone and mild extrahepatic biliary ductal dilatation. 2. Mild gallbladder wall thickening with very trace pericholecystic fluid concerning for early acute cholecystitis. 3. Moderate to severe left-sided hydronephrosis with etiology unclear. 4. 10 mm nonobstructing calyceal calculus in the right kidney. 5. Echogenic kidneys bilaterally consistent with medical renal disease. Head CT 06/14/18 11:15 CONCLUSION: 1. No acute intracranial abnormality. . Hepatobiliary Scan Nuclear Medicine 06/15/18 00:00 CONCLUSION: 1. Nonfilling of the gallbladder and of concern for cholecystitis/cystic duct obstruction in the proper clinical setting. 2. Patent common bile duct. The stone seen on the ultrasound may have passed or migrated proximally into the cystic duct. If it remains within the common bile duct is apparently not obstructed. Head MRI 06/15/18 07:03 CONCLUSION: Unremarkable study. GI Procedure 06/16/18 00:00 CONCLUSION: Common bile duct filling defects Mild distention of the common bile duct. Abdomen/Pelvis CT 06/17/18 00:00 CONCLUSION: 1. Significant hydronephrosis left kidney due to a large left proximal ureteral stone. 2. Gallbladder with stones. 3. Tiny right renal stone nonobstructing. Assessment and Plan - Assessment (1) Nephrolithiasis Code(s): N20.0 - Calculus of kidney Status: Acute (2) Hydronephrosis Code(s): N13.30 - Unspecified hydronephrosis Status: Acute (3) Ureteral calculus, left Code(s): N20.1 - Calculus of ureter Status: Acute - Plan Urologic impression: 1. Left hydronephrosis secondary to obstructing 1 cm left proximal ureteral calculus 2. Nonobstructing 3-4 mm right upper pole renal calculus Plan: Discussed ongoing management with left ureteral stent placement and subsequent shockwave lithotripsy. Patient refused having a stent placed during present hospitalization and preferred to follow-up with me as an outpatient since he was asymptomatic.
== END 2018-06-17 19:10 ==
LOC: NEDA 09:14 → NEPC 09:14 → NEPGCP 13:53
PROVIDERS: ADMIT Family Medicine; ATTEND Family Medicine
DX: N20.0 Calculus of kidney; Z79.899 Other long term (current) drug therapy; R25.1 Tremor, unspecified; K59.00 Constipation, unspecified; N13.30 Unspecified hydronephrosis; R27.0 Ataxia, unspecified; G93.40 Encephalopathy, unspecified; B96.20 Unspecified Escherichia coli [E. coli] as the cause of diseases classified elsewhere; R73.03 Prediabetes; D72.829 Elevated white blood cell count, unspecified; E78.5 Hyperlipidemia, unspecified; K80.42 Calculus of bile duct with acute cholecystitis without obstruction; I63.9 Cerebral infarction, unspecified; E87.6 Hypokalemia; F32.9 Major depressive disorder, single episode, unspecified; R32 Unspecified urinary incontinence; E87.2 Acidosis; R41.82 Altered mental status, unspecified; I10 Essential (primary) hypertension; N17.9 Acute kidney failure, unspecified; Z86.73 Personal history of transient ischemic attack (TIA), and cerebral infarction without residual deficits; N39.0 Urinary tract infection, site not specified; D64.9 Anemia, unspecified; Z79.82 Long term (current) use of aspirin